=== PATIENT | male | born 1965 | race Caucasian/White ===

== ENCOUNTER 2023-08-15 11:13 | Observation (INO) | payer BC ==
[2023-08-15 11:55] LABS: Absolute Lymphocytes (CBC) 2.6 K/uL (0.7-4.9); Hematocrit 51.3 % (39.6-49.0); Lymphocytes % 26.3 % (15.3-44.8); Platelets 269 thou/uL (152-406)
[2023-08-15 12:00] LABS: Protime INR 1.06
[2023-08-15 12:09] LABS: Albumin 3.9 g/dL (3.4-5.0); Bilirubin Direct 0.4 mg/dL (0-0.2); Bilirubin Indirect, Calculated 1.3 mg/dL (0.2-0.8); Bilirubin Total 1.7 mg/dL (0.2-1.0); Magnesium 2.1 mg/dL (1.6-2.4); Potassium 3.8 mEq/L (3.5-5.1); Protein, Total 7.9 g/dL (6.4-8.2)
--- NOTE | 2023-08-15 12:44 | RAD REPORT ---
EXAM DESCRIPTION: RAD - Chest Single View - 08/15/2023 12:38 pm CLINICAL HISTORY: CHEST PAIN Chest pain. COMPARISON: <Comparisons> FINDINGS: Portable technique limits examination quality. The lungs are grossly clear. The heart is prominent in size. No displaced fractures.Sternotomy wires noted. IMPRESSION: No acute intrathoracic process suspected.
[2023-08-15] MEDS ORDERED: ASPIRIN 81 MG CHEWABLE TABLET ONE (13:14)
--- NOTE | 2023-08-15 14:01 | EDPHYS ---
Physician Documentation [facility] Name: Reji Ramirez Age: 57 yrs Sex: Male : 1965 Arrival Date: 08/15/2023 Time: 11:13 Bed 20 Private MD: ED Physician Brandon Hahn HPI: 08/15 11:49 This 57 yrs old Male presents to ER via Ambulatory with complaints of Chest Pain. ms3 11:49 57-year-old male with past medical history of hypertension, hyperlipidemia, diabetes ms3 presents to the emergency department chest pain that began at 6 AM on waking up. Patient states the pain is resolved at this time. Patient states at 6 AM he rated the pain at 3/10 and describes it as being heavy. Patient denies nausea, vomiting, shortness of breath, sweating. Patient states the pain did not radiate. 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 Historical: - Allergies: 11:24 No Known Allergies; nj1 - PMHx: 11:24 Hypertension; High Cholesterol; Diabetes mellitus; nj1 - PSHx: 11:24 Coronary artery bypass graft; Cholecystectomy; nj1 - Immunization history:: Client reports having NOT received the Covid vaccine. - Social history:: Smoking status: Patient denies any tobacco usage or history of. ROS: 11:49 Constitutional: Negative for fever, and chills. Neck: Negative for injury, pain, and ms3 swelling, Respiratory: Negative for shortness of breath, cough, wheezing, and pleuritic chest pain, Abdomen/GI: Negative for abdominal pain, nausea, vomiting, diarrhea, and constipation, MS/Extremity: Negative for injury and deformity, Skin: Negative for injury, rash, and discoloration, 11:49 Cardiovascular: Positive for chest pain, Exam: 11:49 Constitutional: This is a well developed, well nourished patient who is awake, alert, ms3 and in no acute distress. Neck: Trachea midline, no cervical lymphadenopathy. Supple, full range of motion without nuchal rigidity, or vertebral point tenderness. No Meningismus. Cardiovascular: Regular rate and rhythm with a normal S1 and S2. No gallops, murmurs, or rubs. Normal PMI, no JVD. No pulse deficits. Respiratory: Lungs have equal breath sounds bilaterally, clear to auscultation and percussion. No rales, rhonchi or wheezes noted. No increased work of breathing, no retractions or nasal flaring. Abdomen/GI: Soft, non-tender, with normal bowel sounds. No distension or tympany. No guarding or rebound. No evidence of tenderness throughout. Skin: Warm, dry with normal turgor. Normal color with no rashes, no lesions, and no evidence of cellulitis. MS/ Extremity: Pulses equal, no cyanosis. Neurovascular intact. Full, normal range of motion. 11:55 ECG was reviewed by the Attending Physician. ms3 Vital Signs: 11:15 BP 119 / 81; Pulse 58; Resp 18; Temp 97.7(O); Pulse Ox 100% on R/A; Weight 112.49 kg; nj1 Height 5 ft. 7 in. ; Pain 3/10; 12:34 BP 105 / 63; Pulse 61; Resp 18; Pulse Ox 95% ; mb9 11:15 Body Mass Index 38.84 (112.49 kg, 170.18 cm) nj1 11:15 Pain Scale: Adult nj1 MDM: 11:49 Patient medically screened. ms3 11:49 Differential diagnosis: abnormal EKG, acute myocardial infarction. ms3 12:52 HEART Score: History: Moderately Suspicious (1), ECG: Normal (0), Age: > 45 and < 65 ms3 years (1), Risk Factors: > or = 3 Risk factors for atherosclerotic disease (2), [Hypercholesterolemia] [Hypertension] [DM] Troponin: < or = 1 x Normal Limit (0), Total Score = 4. The patient was given aspirin in the Emergency Department. 12:52 The patient was given aspirin in the Emergency Department. Data reviewed: vital signs, ms3 nurses notes, lab test result(s), EKG, radiologic studies, and as a result, I will admit patient. Consideration of Admission/Observation Patient was admitted/placed on observation. Management of patient was discussed with the following: Hospitalist: Discussed case with Hospitalist team and they accept patient as observation. Discussed necessity of observation with patient and he understands/ agrees with plan.. 14:00 ED course: Discussed necessity of admission with patient. He understands/ agrees with nc3 plan. All questions answered.. 08/15 11:38 Order name: Basic Metabolic Panel; Complete Time: 12:50 mb9 08/15 11:38 Order name: CBC with Diff; Complete Time: 12:50 mb9 08/15 11:38 Order name: D-Dimer; Complete Time: 12:50 mb9 08/15 11:38 Order name: LFT's; Complete Time: 12:50 mb9 08/15 11:38 Order name: Magnesium; Complete Time: 12:50 mb9 08/15 11:38 Order name: NT PRO-BNP; Complete Time: 12:50 mb9 08/15 11:38 Order name: PT-INR; Complete Time: 12:50 mb9 08/15 11:38 Order name: Troponin HS; Complete Time: 12:50 mb9 08/15 17:14 Order name: Glucose, Ancillary Testing; Complete Time: 19:14 EDMS 08/15 11:38 Order name: XRAY Chest (1 view); Complete Time: 12:50 mb9 08/15 11:38 Order name: EKG; Complete Time: 11:39 mb9 08/15 11:38 Order name: Cardiac monitoring; Complete Time: 11:38 mb9 08/15 11:38 Order name: EKG - Nurse/Tech; Complete Time: 11:38 mb9 08/15 11:38 Order name: IV Saline Lock; Complete Time: 11:38 mb9 08/15 11:38 Order name: Labs collected and sent; Complete Time: 11:38 mb9 08/15 11:38 Order name: O2 Per Protocol; Complete Time: 11:38 mb9 08/15 11:38 Order name: O2 Sat Monitoring; Complete Time: 11:38 mb9 EC:55 Rate is 57 beats/min. Rhythm is regular. QRS [place] is Normal. OR interval is normal. ms3 Clinical impression: NSR w/ Non-specific ST/T Changes. Interpreted by me. Reviewed by me. Administered Medications: 13:01 Drug: Aspirin PO Chewable Tablet 324 mg PO once; 81 mg tablets x 4 Route: PO; mb9 19:26 Follow up: Response: No adverse reaction mb9 Disposition Summary: 08/15/23 14:00 Hospitalization Ordered Notes: Hospitalization Status: Observation ms3 Provider: Mc Irwin ms3 Condition: Stable ms3 Problem: new ms3 Symptoms: are unchanged ms3 Bed/Room Type: Standard ms3 Location: Telemetry/MedSurg (observation)(08/15/23 18:20) eb Room Assignment: 401(08/15/23 18:20) eb Diagnosis - Chest pain, unspecified ms3 Forms: - Medication Reconciliation Form ms3 - SBAR form ms3 - Leadership Thank You Letter ms3 Signatures: Dispatcher [employer] EDMT Ami Eddy Marcus, DO DO ms3 [place] García RN RN mb9 Shaneka Velez RN RN nj1 Corrections: (The following items were deleted from the chart) 13:13 12:52 Aspirin PO Chewable Tablet 324 mg PO once; 81 mg tablets x 4 ordered. ms3 ms3 17:55 14:00 Telemetry/MedSurg (observation) ms3 eb 17:55 14:00 ms3 eb 18:20 17:55 [facility] ER HOLD eb eb 18:20 17:55 ERHOLD- eb eb
--- NOTE | 2023-08-15 14:01 | ER ---
Nurse's Notes [facility] Name: Reji Ramirez Age: 57 yrs Sex: Male : 1965 Arrival Date: 08/15/2023 Time: 11:13 Bed 20 Private MD: Diagnosis: Chest pain, unspecified Presentation: 08/15 11:15 Chief complaint: Patient states: Chest pain since waking up this morning, went to [facility] urgent care, sent over for further evaluation and treatment. 11:15 Coronavirus screen: Vaccine status: Patient reports being unvaccinated. Ebola Screen: [facility] Patient denies travel to an Ebola-affected area in the 21 days before illness onset. Initial Sepsis Screen: Does the patient meet any 2 criteria? No. Patient's initial sepsis screen is negative. Does the patient have a suspected source of infection? No. Patient's initial sepsis screen is negative. Risk Assessment: Do you want to hurt yourself or someone else? Patient reports no desire to harm self or others. Onset of symptoms was August 15, 2023 at 06:00. 11:15 Method Of Arrival: Ambulatory [facility] 11:15 Acuity: NITIN 2 [facility] Historical: - Allergies: 11:24 No Known Allergies; [facility] - PMHx: 11:24 Hypertension; High Cholesterol; Diabetes mellitus; [facility] - PSHx: 11:24 Coronary artery bypass graft; Cholecystectomy; [facility] - Immunization history:: Client reports having NOT received the Covid vaccine. - Social history:: Smoking status: Patient denies any tobacco usage or history of. Screenin:44 [facility] ED Fall Risk Assessment (Adult) History of falling in the last 3 months, mb9 including since admission No falls in past 3 months (0 pts) Confusion or Disorientation No (0 pts) Intoxicated or Sedated No (0 pts) Impaired Gait No (0 pts) Mobility Assist Device Used No (0 pt) Altered Elimination No (0 pt) Score/Fall Risk Level 0 - 2 = Low Risk Oriented to surroundings, Maintained a safe environment, Educated pt \T\ family on fall prevention, incl call for assistance when getting out of bed. Abuse screen: Denies threats or abuse. Nutritional screening: No deficits noted. Tuberculosis screening: No symptoms or risk factors identified. Assessment: 11:38 General: Appears in no apparent distress. Behavior is calm, cooperative. Pain: mb9 Complains of pain in chest Pain does not radiate. Pain currently is 0 out of 10 on a pain scale. Quality of pain is described as pressure, Pain began suddenly, Is intermittent. Neuro: Campos Agitation-Sedation Scale (RASS): 0 - Alert and Calm Level of Consciousness is awake, alert, obeys commands, Oriented to person, place, time, situation, Appropriate for age. Cardiovascular: Reports chest pain, Heart tones S1 S2 present Patient's skin is warm and dry. Respiratory: Airway is patent Respiratory effort is even, unlabored, Respiratory pattern is regular, symmetrical, Breath sounds are clear bilaterally. Denies shortness of breath. GI: Abdomen is round non-distended, Bowel sounds present X 4 quads. Abd is soft and non tender X 4 quads. Patient currently denies nausea, vomiting. : No signs and/or symptoms were reported regarding the genitourinary system. EENT: No signs and/or symptoms were reported regarding the EENT system. Derm: Skin is pink, warm \T\ dry. Musculoskeletal: Range of motion: intact in all extremities. 12:34 Reassessment: No changes from previously documented assessment. Patient and/or family mb9 updated on plan of care and expected duration. Pain level reassessed. Patient is alert, oriented x 3, equal unlabored respirations, skin warm/dry/pink. 15:58 Reassessment: See [facility] for further charting. mb9 Vital Signs: 11:15 BP 119 / 81; Pulse 58; Resp 18; Temp 97.7(O); Pulse Ox 100% on R/A; Weight 112.49 kg; nj1 Height 5 ft. 7 in. ; Pain 3/10; 12:34 BP 105 / 63; Pulse 61; Resp 18; Pulse Ox 95% ; mb9 11:15 Body Mass Index 38.84 (112.49 kg, 170.18 cm) nj1 11:15 Pain Scale: Adult nj1 ED Course: 11:15 Patient arrived in ED. im 11:20 EKG done, by ED staff, reviewed by Brandon Hahn DO. nj1 11:21 Brandon Hahn DO is Attending Physician. ms3 11:24 Triage completed. nj1 11:25 Arm band placed on right wrist. nj1 11:28 Breneman, Yudelka, RN is Primary Nurse. mb9 11:38 Inserted saline lock: 20 gauge in right antecubital area, using aseptic technique. mb9 Blood collected. 11:44 Placed in gown. Bed in low position. Call light in reach. Side rails up X 1. Client mb9 placed on continuous cardiac and pulse oximetry monitoring. NIBP monitoring applied. 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 11:44 No provider procedures requiring assistance completed. Patient maintains SpO2 mb9 saturation greater than 95% on room air. 12:40 XRAY Chest (1 view) In Process Unspecified. EDMS 14:00 Mc Irwin MD is Hospitalizing Provider. ms3 Administered Medications: 13:01 Drug: Aspirin PO Chewable Tablet 324 mg PO once; 81 mg tablets x 4 Route: PO; mb9 19:26 Follow up: Response: No adverse reaction mb9 Medication: 11:45 VIS not applicable for this client. mb9 Outcome: 14:00 Decision to Hospitalize by Provider. ms3 19:37 Patient left the ED. mb9 Signatures: Dispatcher [employer] EDMT Brandon Hahn DO DO ms3 [place] García, RN RN mb9 Shaneka Velez RN RN nj1 Maggi Gonzalez im
--- NOTE | 2023-08-15 14:16 | P.HP ---
Certification for Inpatient Patient admitted to: Observation With expected LOS: <2 Midnights Patient will require the following post-hospital care: None Practitioner: I am a practitioner with admitting privileges, knowledge of patient current condition, hospital course, and medical plan of care. Services: Services provided to patient in accordance with Admission requirements found in Title 42 Section 412.3 of the Code of Federal Regulations Patient History Date of Service: 08/15/23 Reason for admission: Chest pain History of Present Illness: 57-year-old male with history of CAD with previous CABG 2014, chronic systolic ingestive heart failure, [id number]-vkksledec diabetes, hypertension and hyperlipidemia presents to the emergency department chief complaint of chest pain. Reports the pain began this morning while lying in bed described as pressure-like nonradiating rated 3 out of 10 in intensity with no other associated symptoms. He has had intermittent episodes of pain without the day lasting about 35 minutes at a time with no obvious provoking events. He does report the last 2 days doing a lot of work with a chainsaw, his pain is n onreproducible and currently mild in nature. 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 Has not had a heart catheterization since 2014 when he had his bypass. Of note patient does take both metoprolol tartrate and metoprolol succinate, he has both bottles with him and I reviewed his prescription from the pharmacy to confirm. ED provider wishes to admit under observation for ACS rule out. Allergies No Known Allergies Allergy (Verified 09/15/16 13:12) Home Medications: Aspirin 81 mg PO DAILY 06/11/15 Atorvastatin Calcium [Lipitor] 80 mg PO DAILY 09/01/16 Furosemide 40 mg PO BID 09/01/16 Metoprolol Succinate [Toprol Xl*] 25 mg PO DAILY 09/01/16 Metoprolol Tartrate [Lopressor*] 25 mg PO DAILYPRN PRN 09/01/16 PARoxetine HCL [Paxil*] 10 mg PO DAILY 09/01/16 Sacubitril/Valsartan [Entresto 49 mg-51 mg Tablet] 1 tab PO BID 09/01/16 - Past Medical/Surgical History Diabetic: No -: LIPIDS -: HTN -: OR -: CHF-systolic -: CAD-CABG -: CABG -: LEFT VENTRICLE ANURSYMC RESECTION -: holly -: esophgeal repair Psychosocial/ Personal History: Lives at home alone currently - Family History Mother -: Heart disease, Diabetes Notes: HAD MINOR OR, Father -: Heart disease, Diabetes, Stroke Notes: OR - Social History Smoking Status: Never smoker Alcohol use: No CD- Drugs: No Caffeine use: Yes Place of Residence: Home Review of Systems 10-point ROS is otherwise unremarkable Cardiovascular: Chest Pain Physical Examination - Physical Exam General: Alert, In no apparent distress, Oriented x3 HEENT: Atraumatic, PERRLA Neck: Supple, 2+ carotid pulse no bruit, No LAD Respiratory: Clear to auscultation bilaterally, Normal air movement Cardiovascular: Regular rate/rhythm, Normal S1 S2 Gastrointestinal: Normal bowel sounds, No tenderness Musculoskeletal: No tenderness Integumentary: No rashes Neurological: Normal speech, Normal strength at 5/5 x4 extr, Normal tone - Studies Laboratory Data (last 24 hrs) 08/15/23 08/15/23 08/15/23 11:40 11:40 11:40 WBC 9.80 Hgb 18.0 H Hct 51.3 H Plt Count 269 PT 11.6 INR 1.06 Sodium 134 L Potassium 3.8 BUN 17 Creatinine 0.96 Glucose 152 H Magnesium 2.1 Total Bilirubin 1.7 H AST 16 ALT 36 Alkaline Phosphatase 94 Assessment and Plan - Plan Assessment: Chest pain rule out ACShistory of CAD with previous CABG 2014 Chronic systolic congestive heart failure Diabetes mellitus type [id number] Hypertension Hyperlipidemia Plan: Chest pain rule out ACShistory of CAD with previous CABG 2014 Monitor on telemetry, trend troponins Stress test reportedly 4 months ago normal per patient Has not had heart cath since CABG in 2014 Cardiology consult, continue aspirin, statin, beta-ang Chronic systolic congestive heart failure Who medications including Entresto continued Diabetes mellitus type [id number] Mild sliding scale insulin, continue home medications Hypertension Hyperlipidemia Atorvastatin and metoprolol continue Patient does take metoprolol tartrate and metoprolol succinate at home DVT PPX: Lovenox Code status: Full Discharge Plan: Home Plan to discharge in: 24 Hours - Advance Directives Does patient have a Living Will: No Does patient have a Durable POA for Healthcare: No - Code Status/Comfort Care Code Status Assessed: Yes (Full code) Critical Care: No Time Spent Managing Pts Care (In Minutes): 55
[2023-08-15] MEDS ORDERED: ONDANSETRON 4 MG/2 ML VIAL IV PRN (15:22)
[2023-08-15 15:39] VITALS: BMI 38.5
[2023-08-15] MEDS ORDERED: METOPROLOL TAR 25 MG TAB PO PRN (15:50)
[2023-08-15] MEDS: INSULIN REGULAR (HUMAN) 100 UNIT/ML SQ SCH ×2 (16:30→21:43)
[2023-08-15] MEDS: FUROSEMIDE 40 MG TABLET PO SCH (17:00)
[2023-08-15] MEDS ORDERED: METOPROLOL TAR 25 MG TAB PO SCH (18:00)
[2023-08-15 19:57] VITALS: O2SAT 95
[2023-08-15] MEDS ORDERED: SACUBITRIL/VALSARTAN 49/51 MG TAB PO SCH (21:00)
[2023-08-15] MEDS ORDERED: METOPROLOL XL 25 MG TAB PO SCH (21:00)
[2023-08-15] MEDS ORDERED: ATORVASTATIN 80 MG TAB PO SCH (21:00)
[2023-08-15] MEDS ORDERED: PARoxetine HCL 10 MG TAB PO SCH (21:00)
[2023-08-16 06:31] LABS: Absolute Lymphocytes (CBC) 2.8 K/uL (0.7-4.9); Hematocrit 45.7 % (39.6-49.0); Lymphocytes % 34.7 % (15.3-44.8); MPV 7.8 fL (7.6-11.3); Platelets 236 thou/uL (152-406); RBC Red Blood Cell Count 4.81 M/uL (4.33-5.43)
[2023-08-16 07:03] LABS: Albumin 3.1 g/dL (3.4-5.0); Potassium 3.2 mEq/L (3.5-5.1); Protein, Total 6.3 g/dL (6.4-8.2); Troponin High Sensitivity 9.2 pg/mL (<58.9)
[2023-08-16] MEDS: INSULIN REGULAR (HUMAN) 100 UNIT/ML SQ SCH (07:30)
[2023-08-16] MEDS: FUROSEMIDE 40 MG TABLET PO SCH (07:42)
[2023-08-16] MEDS ORDERED: POTASSIUM 25 MEQ EFFERV TAB PO ONE (08:00)
[2023-08-16 08:38] VITALS: BP 98/57; TEMP 98
[2023-08-16] MEDS ORDERED: ENOXAPARIN 40 MG/0.4 ML SQ SCH (09:00)
[2023-08-16] MEDS ORDERED: EPLERENONE 25 MG PO SCH (09:00)
[2023-08-16] MEDS ORDERED: ATORVASTATIN 80 MG TAB PO SCH (09:00)
[2023-08-16] MEDS ORDERED: HOME MED 1 EA UNK (Aspirin [Aspirin] 81 MG Tab.Chew) PO SCH (09:00)
[2023-08-16] MEDS ORDERED: FUROSEMIDE 40 MG TABLET PO SCH (09:00)
[2023-08-16] MEDS ORDERED: Dapagliflozin Propanediol [Farxiga] 10 MG Tablet PO SCH (09:00)
[2023-08-16] MEDS ORDERED: METOPROLOL XL 50 MG TAB PO SCH (09:00)
[2023-08-16] MEDS ORDERED: METFORMIN HCL 500 MG TAB PO SCH (09:00)
[2023-08-16] MEDS ORDERED: ASPIRIN EC 81 MG TAB PO SCH (09:00)
[2023-08-16] MEDS ORDERED: PAROXETINE 25 MG PO SCH (09:00)
--- NOTE | 2023-08-16 10:06 | P.DS ---
Admission Date: 08/15/23 Discharge Date: 08/16/23 Disposition: ROUTINE DISCHARGE Discharge Condition: GOOD Reason for Admission: Chest pain Consultations: Cardiology-Dr. Ortiz Brief History of Present Illness: 57-year-old male with history of CAD with previous CABG 2014, chronic systolic ingestive heart failure, tyx-rxjefli-uflcjqblf diabetes, hypertension and hyperlipidemia presents to the emergency department chief complaint of chest pain. Reports the pain began this morning while lying in bed described as pressure-like nonradiating rated 3 out of 10 in intensity with no other associated symptoms. He has had intermittent episodes of pain without the day lasting about 35 minutes at a time with no obvious provoking events. He does report the last 2 days doing a lot of work with a chainsaw, his pain is nonreproducible and currently mild in nature. 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 Has not had a heart catheterization since 2014 when he had his bypass. Of note patient does take both metoprolol tartrate and metoprolol succinate, he has both bottles with him and I reviewed his prescription from the pharmacy to confirm. ED provider wishes to admit under observation for ACS rule out. Hospital Course: Assessment: Chest pain rule out ACShistory of CAD with previous CABG 2014 Chronic systolic congestive heart failure Diabetes mellitus type [id number] Hypertension Hyperlipidemia Patient was admitted under observation for chest pain/ACS rule out. He was monitored on telemetry and troponins were trended. No significant arrhythmia was noted on telemetry and troponins remain negative during hospitalization. Patient was evaluated cardiology recommends outpatient stress test for further evaluation. Patient stable for discharge at this time. Please continue your home medications as prescribed Follow-up with your primary care doctor in 1 to 2 weeks as well as cardiologyDr. Ortiz within 1 week.-Call Dr. Ortiz's office for appointment. Vital Signs/Physical Exam: Temp Pulse Resp BP Pulse Ox 98.0 F 59 16 98/57 L 97 08/16/23 08:00 08/16/23 08:00 08/16/23 08:00 08/16/23 08:00 08/16/23 08:00 General: Alert, In no apparent distress, Oriented x3 HEENT: Atraumatic, PERRLA, EOMI Neck: Supple, JVD not distended Respiratory: Clear to auscultation bilaterally, Normal air movement Cardiovascular: Regular rate/rhythm, Normal S1 S2 Gastrointestinal: Normal bowel sounds Musculoskeletal: No tenderness Integumentary: No rashes Neurological: Normal speech, Normal tone, Normal affect Laboratory Data at Discharge: WBC 8.00 thou/uL (4.3-10.9) 08/16/23 06:00 Hgb 15.6 g/dL (13.6-17.9) D 08/16/23 06:00 Hct 45.7 % (39.6-49.0) 08/16/23 06:00 Plt Count 236 thou/uL (152-406) 08/16/23 06:00 PT 11.6 SECONDS (9.5-12.5) 08/15/23 11:40 INR 1.06 08/15/23 11:40 Sodium 139 mEq/L (136-145) D 08/16/23 06:00 Potassium 3.2 mEq/L (3.5-5.1) L D 08/16/23 06:00 BUN 15 mg/dL (7-18) 08/16/23 06:00 Creatinine 0.74 mg/dL (0.70-1.30) 08/16/23 06:00 Glucose 148 mg/dL (74-106) H 08/16/23 06:00 Magnesium 2.1 mg/dL (1.6-2.4) 08/15/23 11:40 Total Bilirubin 1.0 mg/dL (0.2-1.0) 08/16/23 06:00 AST 11 U/L (15-37) L 08/16/23 06:00 ALT 27 U/L (16-61) 08/16/23 06:00 Alkaline Phosphatase 76 U/L (45-117) 08/16/23 06:00 Triglycerides 108 mg/dL (<150) 08/16/23 06:00 Cholesterol 96 mg/dL (<200) 08/16/23 06:00 HDL Cholesterol 33 mg/dL (40-60) L 08/16/23 06:00 Cholesterol/HDL Ratio 2.91 08/16/23 06:00 Home Medications: Aspirin 81 mg PO DAILY 06/11/15 Atorvastatin Calcium [Lipitor] 80 mg PO DAILY 09/01/16 Furosemide 40 mg PO BID 09/01/16 Metoprolol Succinate [Toprol Xl*] 25 mg PO DAILY 09/01/16 Metoprolol Tartrate [Lopressor*] 25 mg PO DAILYPRN PRN 09/01/16 PARoxetine HCL [Paxil*] 25 mg PO DAILY 09/01/16 Dapagliflozin Propanediol [Farxiga] 10 mg PO DAILY 08/15/23 Eplerenone 25 mg PO DAILY 08/15/23 Metformin HCl 500 mg PO DAILY 08/15/23 Sacubitril/Valsartan [Entresto 49 mg-51 mg Tablet] 49 - 51 mg PO BID 08/15/23 Physician Discharge Instructions: Patient was admitted under observation for chest pain/ACS rule out. He was monitored on telemetry and troponins were trended. No significant arrhythmia was noted on telemetry and troponins remain negative during hospitalization. Patient was evaluated cardiology recommends outpatient stress test for further evaluation. Patient stable for discharge at this time. Please continue your home medications as prescribed Follow-up with your primary care doctor in 1 to 2 weeks as well as cardiologyDr. Ortiz within 1 week.-[address] Dr[address] Ortiz's office for appointment. Diet: AHA Activity: Ad ramya Followup: Ayleen Cruz MD [Primary Care Provider] - 1-2 Weeks (Call for appointment.) Antwon Ortiz MD [ACTIVE - CAN ADMIT] - 1 Week (call for appointment.) Time spent managing pt's care (in minutes): 25
--- NOTE | 2023-08-16 11:08 | P.CNS ---
Date of Consult: 08/15/23 Reason for Consult: Chest pain Requesting Physician: Mc Irwin Chief Complaint: Chest pain History of Present Illness: Mr. Ramirez is a 57yo patient with CAD history and NIDDM who presented to the ED for substernal mild intermittent chest pain of 3/10. As he has a significant cardiac history and DM he went to an Urgent care for evaluation. They sent him to the ED. Troponin, EKG, Chest x-ray negative. Allergies No Known Allergies Allergy (Verified 09/15/16 13:12) Home medications list reviewed: Yes Home Medications: Aspirin 81 mg PO DAILY 06/11/15 Atorvastatin Calcium [Lipitor] 80 mg PO DAILY 09/01/16 Furosemide 40 mg PO BID 09/01/16 Metoprolol Succinate [Toprol Xl*] 25 mg PO DAILY 09/01/16 Metoprolol Tartrate [Lopressor*] 25 mg PO DAILYPRN PRN 09/01/16 PARoxetine HCL [Paxil*] 25 mg PO DAILY 09/01/16 Dapagliflozin Propanediol [Farxiga] 10 mg PO DAILY 08/15/23 Eplerenone 25 mg PO DAILY 08/15/23 Metformin HCl 500 mg PO DAILY 08/15/23 Sacubitril/Valsartan [Entresto 49 mg-51 mg Tablet] 49 - 51 mg PO BID 08/15/23 - Past Medical/Surgical History Diabetic: No -: LIPIDS -: HTN -: [place] -: CHF-systolic -: CAD-CABG -: CABG -: LEFT VENTRICLE AN[facility] RESECTION -: holly -: esophgeal repair Psychosocial/ Personal History: Lives at home alone currently - Family History Mother Medical History: Heart disease, Diabetes Notes: HAD MINOR [place], Father Medical History: Heart disease, Diabetes, Stroke Notes: [place] - Social History Smoking Status: Unknown if ever smoked Alcohol use: No CD- Drugs: No Caffeine use: Yes Place of Residence: Home Review of Systems 10-point ROS is otherwise unremarkable Cardiovascular: As per HPI Physical Examination Temp Pulse Resp BP Pulse Ox 98.0 F 59 16 98/57 L 97 08/16/23 08:00 08/16/23 08:00 08/16/23 08:00 08/16/23 08:00 08/16/23 08:00 General: Alert, In no apparent distress, Oriented x3 HEENT: Atraumatic, Normocephalic, PERRLA Neck: Supple, 2+ carotid pulse no bruit Respiratory: Clear to auscultation bilaterally, Normal air movement Cardiovascular: No edema, Normal pulses Capillary refill: <2 Seconds Gastrointestinal: Normal bowel sounds Musculoskeletal: No clubbing Integumentary: No rashes, No breakdown Neurological: Normal speech, Normal tone Lymphatics: No axilla or inguinal lymphadenopathy External genitalia: Deferred Rectal: Deferred Laboratory Data (last 24 hrs) 08/15/23 08/15/23 08/15/23 11:40 11:40 11:40 WBC 9.80 Hgb 18.0 H Hct 51.3 H Plt Count 269 PT 11.6 INR 1.06 Sodium 134 L Potassium 3.8 BUN 17 Creatinine 0.96 Glucose 152 H Magnesium 2.1 Total Bilirubin 1.7 H AST 16 ALT 36 Alkaline Phosphatase 94 - Problems (1) Chest pain Onset Date: 09/16/16 Current Visit: No Status: Acute Plan: Trend troponins, telemetry, continue current medications 08/16/23 Troponin trend negative, negative for chest pain today, follow up with office for outpatient f/u and NM stress test. (2) Essential hypertension Current Visit: Yes Status: Acute Plan: Pt states his pressure is well controlled and tends to stay low without any untoward effects. 94/59 overnight, he states this is normal for him, continue current therapy (3) DM type 2 with diabetic mixed hyperlipidemia Current Visit: Yes Status: Acute Plan: Monitor electrolytes
--- NOTE | 2023-08-17 13:50 | EKG ---
Test Date: 2023-08-15 Test Time: 11:19:02 Pack Mule Worker: ANGELINE MEASUREMENT RESULTS: Intervals: Rate: 57 NH: 134 QRSD: 108 QT: 446 QTc: 434 [place]: P: 6 NH: 134 QRS: 22 T: 167 INTERPRETIVE STATEMENTS: Sinus bradycardia Inferior infarct, age undetermined Anterolateral infarct, age undetermined Abnormal ECG Compared to ECG 09/01/2016 10:40:57 Sinus rhythm no longer present Myocardial infarct finding still present Electronically Signed On 08-17-23 13:41:43 EMPLOYMENT ATTORNEY by Antwon Ortiz
== END 2023-08-16 10:57 | disposition home or self-care (01) ==
LOC: ER 11:13 → ERHOLD 14:17 → 4TH 19:29
PROVIDERS: ADMIT Hospitalist; ATTEND Hospitalist
DX: R07.9 Chest pain, unspecified (principal); I25.10 Atherosclerotic heart disease of native coronary artery without angina pectoris; I50.22 Chronic systolic (congestive) heart failure; E11.9 Type 2 diabetes mellitus without complications; I10 Essential (primary) hypertension; Z95.1 Presence of aortocoronary bypass graft; Z82.49 Family history of ischemic heart disease and other diseases of the circulatory system; E78.2 Mixed hyperlipidemia
CPT/HCPCS: 93005; 85025 ×2; 80048; 36415; 83735; 85610; 80061; 82947 ×3; 85379; 80076; 84484 ×2; 80053; 83880; 71045; 99285; J1815; J1650; G0378 ×4

== ENCOUNTER 2023-09-24 10:40 | Day surgery (SDC) | payer BC ==
[2023-09-22 13:14] LABS: Absolute Lymphocytes (CBC) 2.9 K/uL (0.7-4.9); Hematocrit 51.2 % (39.6-49.0); Lymphocytes % 34.8 % (15.3-44.8); MCV 95.1 fL (80-100); MPV 7.9 fL (7.6-11.3); Platelets 271 thou/uL (152-406); RBC Red Blood Cell Count 5.39 M/uL (4.33-5.43)
[2023-09-22 13:21] LABS: Protime INR 1.07
[2023-09-22 13:29] LABS: Potassium 4.4 mEq/L (3.5-5.1)
[2023-09-24] MEDS ORDERED: HEPA 1000U/500MLS 2,000 UNIT/1,000 ML BAG IV ONE (10:47)
[2023-09-24] MEDS ORDERED: LIDOCAINE 1% 20 ML MDV ONE (10:47)
[2023-09-24] MEDS ORDERED: FENTANYL CITR 100 MCG/2 ML ONE (10:47)
[2023-09-24] MEDS ORDERED: HEPARIN 10,000 UNIT/10 ML VIAL IV ONE (10:48)
[2023-09-24] MEDS ORDERED: TICAGRELOR 90 MG TABLET PO ONE (10:48)
[2023-09-24] MEDS ORDERED: ATROPINE SULF 1 MG/10 ML SYR IV ONE (10:48)
[2023-09-24] MEDS ORDERED: MIDAZOLAM HCL 2 MG/2 ML INJ ONE (10:48)
[2023-09-24] MEDS ORDERED: ASPIRIN 325 MG TAB ONE (10:49)
[2023-09-24] MEDS ORDERED: CLOPIDOGREL 75 MG TABLET ONE (10:49)
[2023-09-24] MEDS ORDERED: NA CHLORIDE 0.9% 500 ML ONE (10:56)
[2023-09-24 15:52] VITALS: O2SAT 93
[2023-09-24 16:25] VITALS: BP 118/66
--- NOTE | 2023-09-27 17:12 | EKG ---
Test Date: 2023-09-22 Test Time: 13:59:53 Pack Master: CHASITY MEASUREMENT RESULTS: Intervals: Rate: 66 NM: 156 QRSD: 102 QT: 408 QTc: 427 [place]: P: 40 NM: 156 QRS: 23 T: 160 INTERPRETIVE STATEMENTS: Normal sinus rhythm Inferior infarct, age undetermined Anterior infarct, age undetermined ST & T wave abnormality, consider lateral ischemia Abnormal ECG Compared to ECG 08/15/2023 11:19:02 ST (T wave) deviation now present Possible ischemia now present Sinus bradycardia no longer present Myocardial infarct finding still present Electronically Signed On 09-27-23 16:57:48 LAWNMOWER REPAIR MECHANIC by Antwon Ortiz
== END 2023-09-24 16:15 | disposition home or self-care (01) ==
LOC: CCL 10:40
PROVIDERS: ATTEND Internal Medicine
DX: I25.110 Atherosclerotic heart disease of native coronary artery with unstable angina pectoris (principal); I25.700 Atherosclerosis of coronary artery bypass graft(s), unspecified, with unstable angina pectoris; I25.82 Chronic total occlusion of coronary artery; I65.23 Occlusion and stenosis of bilateral carotid arteries; I11.0 Hypertensive heart disease with heart failure; I50.32 Chronic diastolic (congestive) heart failure; E11.9 Type 2 diabetes mellitus without complications; R00.2 Palpitations; E78.5 Hyperlipidemia, unspecified; Z95.1 Presence of aortocoronary bypass graft; Z87.891 Personal history of nicotine dependence; Z79.82 Long term (current) use of aspirin; Z79.84 Long term (current) use of oral hypoglycemic drugs; Z79.899 Other long term (current) drug therapy; Z88.8 Allergy status to other drugs, medicaments and biological substances; Z82.49 Family history of ischemic heart disease and other diseases of the circulatory system
CPT/HCPCS: 93005; 85025; 80048; 36415; 83721; 85610; 85730; 93459; 76937; C1893; Q9967; J2001; J3010; J7040; 99152; 99153; J0461; J2250

== ENCOUNTER 2023-12-09 13:18 | Observation (INO) | payer BC ==
[2023-12-09] MEDS ORDERED: ASPIRIN 81 MG CHEWABLE TABLET ONE (13:39)
[2023-12-09 13:58] LABS: Absolute Eosinophils 0.1 K/uL (0-0.5); Absolute Lymphocytes (CBC) 1.8 K/uL (0.7-4.9); Absolute Monocytes 0.5 K/uL (0.1-1.3); Basophils % 0.2 % (0-1.3); Eosinophils % 1.6 % (0-4.4); Hematocrit 45.9 % (39.6-49.0); Hemoglobin 15.7 g/dL (13.6-17.9); Lymphocytes % 21.2 % (15.3-44.8); MCH 32.3 pg (27.0-35.0); MCHC 34.1 g/dL (32.0-36.0); MCV 94.7 fL (80-100); MPV 7.5 fL (7.6-11.3); Monocytes % 6.4 % (3.3-12.3); Neutrophils % 70.6 % (41.7-73.7); Nucleated Red Blood Cells % 0.1 % (0-0); Platelets 339 thou/uL (152-406); RBC Red Blood Cell Count 4.85 M/uL (4.33-5.43); Red Cell Distribution Width 14.2 % (12.1-15.2)
[2023-12-09 14:02] LABS: PT Prothrombin Time 12.2 SECONDS (9.5-12.5); Protime INR 1.11
--- NOTE | 2023-12-09 14:07 | RAD REPORT ---
EXAM DESCRIPTION: RAD - Chest Single View - 12/09/2023 1:53 pm CLINICAL HISTORY: CHEST PAIN Chest pain. COMPARISON: Chest Single View dated 08/15/2023; Chest Single View dated 09/01/2016 FINDINGS: Portable technique limits examination quality. The lungs are grossly clear. The heart is mildly enlarged in size with changes of a prior CABG. No di splaced fractures. IMPRESSION: No acute intrathoracic process suspected.
[2023-12-09 14:17] LABS: Anion Gap 9.8 mEq/L (5.0-15.0); Potassium 3.8 mEq/L (3.5-5.1); Troponin High Sensitivity 13.3 pg/mL (<58.9)
--- NOTE | 2023-12-09 14:26 | EDPHYS ---
Physician Documentation [facility] Name: Reji Ramirez Age: 58 yrs Sex: Male : 1965 Arrival Date: 12/09/2023 Time: 13:18 Bed 14 Private MD: ED Physician Vick Rust HPI: 12/08 13:35 This 58 yrs old Male presents to ER via Wheelchair with complaints of Low ec2 pulse, Dr. Angel gray 12 lead on him. 13:35 Patient arrives today for evaluation of bradycardia. Patient was in cardiac rehab and ec2 was sent over to the emergency department for further evaluation because he was noted to have heart rates in the 40s. Patient reports some occasional shortness of breath, denies any active chest pain. Patient reports history of previous CAD, CABG x 2. Patient is on amiodarone, metoprolol, Plavix.. Historical: - Allergies: 13:35 Spironolactone; hb - Home Meds: 13:48 amiodarone 200 mg Oral tablet 1 tab 3 times per day [Active]; aspirin 81 mg oral bp capsule 1 cap daily [Active]; atorvastatin 80 mg oral tablet 1 tab daily [Active]; buspirone 5 mg Oral tablet 1 tab 2 times per day [Active]; clopidogrel 75 mg oral tablet 1 tab daily [Active]; cyanocobalamin (vitamin B-12) 500 mcg oral tablet daily [Active]; Farxiga 10 mg oral tablet 1 tab daily [Active]; Colace 100 mg oral capsule 1 cap 2 times per day [Active]; Inspra 25 mg oral tablet 1 tab daily [Active]; Feosol 325 mg (65 mg iron) Oral tablet 1 tab daily [Active]; Lasix 40 mg Oral tablet 1 tabs 2 times per day [Active]; lisinopril 2.5 mg Oral tablet 1 tab daily [Active]; metformin 500 mg Oral tablet 1 tab 2 times per day [Active]; metoprolol tartrate 25 mg oral tablet 1 tab 2 times per day [Active]; Protonix 40 mg oral granules delayed release for susp packet 1 cap daily [Active]; Paxil 20 mg Oral tablet 1 tab daily [Active]; Flomax 0.4 mg Oral capsule 1 cap daily [Active]; trazodone 50 mg Oral tablet 1 tab daily [Active]; - PMHx: 13:35 High Cholesterol; diabetes mellitus; Hypertension; hb - PSHx: 13:35 Cholecystectomy; Coronary artery bypass graft; hb - Immunization history:: Adult Immunizations up to date. - Infectious Disease History:: Denies. - Social history:: Smoking status: Patient denies any tobacco usage or history of. ROS: 13:35 Constitutional: as per hpi ec2 Exam: 13:35 Constitutional: GEN: NAD Head: atraumatic Eyes: EOMI Ears: External ears are ec2 normal. CV: regular rate LUNGS: no respiratory distress ABD: non-distended SKIN: no evidence of rashes MSK: no evidence of trauma NEURO: moves all extremities equally Vital Signs: 13:33 BP 100 / 66; Pulse 44; Resp 16; Temp 97.4(TE); Pulse Ox 100% on R/A; Weight 102.51 kg; hb Height 5 ft. 7 in. ; Pain 0/10; 18:15 BP 108 / 72; Pulse 66; Resp 16; Temp 97.5; Pulse Ox 96% ; bp 13:33 Body Mass Index 35.40 (102.51 kg, 170.18 cm) hb 13:33 Pain Scale: Adult hb MDM: 13:33 Patient medically screened. ec2 13:35 Data reviewed: vital signs. ED course: Patient arrives today for bradycardia ec2 evaluation. Examination markable well-appearing nontoxic dividual is otherwise in no acute distress with a reassuring examination. Patient with a pulse rate of 44, patient blood pressure is reassuring. EKG obtained, independently reviewed and interpreted by me, shows junctional rhythm with a rate of 44, no acute ST segment elevations, intervals otherwise nonconcerning. Evaluating for electrolyte disturbances, ACS, doubt PE. 14:22 ED course: Metabolic profile reassuring. BNP minimally elevated at 880. Troponin within ec2 normal ranges. Chest x-ray shows no acute intrathoracic process. . 14:25 ED course: I discussed case with Dr. Ortiz, recommends admission for further ec2 management of the patient's bradycardia. Patient otherwise asymptomatic at this time.. 12/08 13:34 Order name: Basic Metabolic Panel; Complete Time: 14:21 ec2 12/08 13:34 Order name: CBC with Diff; Complete Time: 14:35 ec2 12/08 13:34 Order name: Magnesium; Complete Time: 14:21 ec2 12/08 13:34 Order name: NT PRO-BNP; Complete Time: 14:21 ec2 12/08 13:34 Order name: PT-INR; Complete Time: 14:21 ec2 12/08 13:34 Order name: Troponin HS; Complete Time: 14:21 ec2 12/08 17:27 Order name: CBC with Automated Diff EDMS 12/08 17:27 Order name: CBC with Automated Diff EDMS 12/08 17:27 Order name: Comprehensive Metabolic Panel EDMS 12/08 17:27 Order name: Comprehensive Metabolic Panel EDMS 12/08 17:27 Order name: Lipid Profile EDMS 12/08 17:27 Order name: Lipid Profile EDMS 12/08 17:27 Order name: T4 Free EDMS 12/08 17:27 Order name: T4 Free EDMS 12/08 17:27 Order name: Thyroid Stimulating Hormone EDMS 12/08 17:27 Order name: Thyroid Stimulating Hormone EDMS 12/08 17:27 Order name: Troponin High Sensitivity EDMS 12/08 17:27 Order name: Troponin High Sensitivity EDMS 12/08 17:27 Order name: Troponin High Sensitivity EDMS 12/08 13:34 Order name: XRAY Chest (1 view); Complete Time: 14:21 ec2 12/08 17:27 Order name: Echo with Doppler EDMS 12/08 17:27 Order name: Echo with Doppler EDMS 12/08 17:27 Order name: CONS Physician Consult EDMS 12/08 13:34 Order name: Cardiac monitoring; Complete Time: 13:46 ec2 12/08 13:34 Order name: EKG - Nurse/Tech; Complete Time: 13:38 ec2 12/08 13:34 Order name: IV Saline Lock; Complete Time: 13:46 ec2 12/08 13:34 Order name: Labs collected and sent; Complete Time: 13:45 ec2 12/08 13:34 Order name: O2 Per Protocol; Complete Time: 13:45 ec2 12/08 13:34 Order name: O2 Sat Monitoring; Complete Time: 13:45 ec2 Administered Medications: 13:45 Drug: Aspirin PO Chewable Tablet 324 mg PO once; 81 mg tablets x 4 Route: PO; bp Disposition Summary: 12/09/23 14:26 Hospitalization Ordered Notes: Hospitalization Status: Inpatient Admission ec2 Provider: Raghavendra Meeks ec2 Location: Telemetry/MedSurg (Inpatient) ec2 Condition: Stable ec2 Problem: new ec2 Symptoms: are unchanged ec2 Bed/Room Type: Standard ec2 Room Assignment: 206(12/09/23 17:46) eb Diagnosis - Bradycardia, unspecified ec2 Forms: - Medication Reconciliation Form ec2 - SBAR form ec2 - Leadership Thank You Letter ec2 Signatures: Dispatcher [employer] EDMS Kati Cheema, JOSE RN Nicolás Alvarenga RN RN Ami Hubbard Vick Rust MD MD ec2 Corrections: (The following items were deleted from the chart) 13:34 13:34 BASIC METABOLIC PANEL+C.LAB.BRZ ordered. EDMS EDMS 13:34 13:34 CBC+H.LAB.BRZ ordered. EDMS EDMS 13:34 13:34 MAGNESIUM+C.LAB.BRZ ordered. EDMS EDMS 13:34 13:34 PROBNP+C.LAB.BRZ ordered. EDMS EDMS 13:34 13:34 PROTIME (+INR)+COAG.LAB.BRZ ordered. EDMS EDMS 13:34 13:34 Troponin High Sensitivity+C.LAB.BRZ ordered. EDMS EDMS 17:46 14:26 ec2 eb
--- NOTE | 2023-12-09 14:26 | ER ---
Nurse's Notes [facility] Name: Reji Ramirez Age: 58 yrs Sex: Male : 1965 Arrival Date: 12/09/2023 Time: 13:18 Bed 14 Private MD: Diagnosis: Bradycardia, unspecified Presentation: 12/08 13:33 Chief complaint: Sent from cardiac rehab for HR 40s, pt c/o SOB and dizziness since hb 1200 today. Coronavirus screen: At this time, the client does not indicate any symptoms associated with coronavirus-19. Ebola Screen: No symptoms or risks identified at this time. Initial Sepsis Screen: Does the patient meet any 2 criteria? No. Patient's initial sepsis screen is negative. Does the patient have a suspected source of infection? No. Patient's initial sepsis screen is negative. Risk Assessment: Do you want to hurt yourself or someone else? Patient reports no desire to harm self or others. Onset of symptoms was December 09, 2023. 13:33 Method Of Arrival: Wheelchair hb 13:33 Acuity: NITIN 2 hb Triage Assessment: 13:35 General: Appears in no apparent distress. Behavior is calm, cooperative. Pain: Denies hb pain. Neuro: Level of Consciousness is awake, alert, obeys commands, Oriented to person, place, time, situation. Cardiovascular: Patient's skin is warm and dry. Respiratory: Reports shortness of breath at rest Respiratory effort is even, unlabored, Respiratory pattern is regular, symmetrical. Historical: - Allergies: 13:35 Spironolactone; hb - Home Meds: 13:48 amiodarone 200 mg Oral tablet 1 tab 3 times per day [Active]; aspirin 81 mg oral bp capsule 1 cap daily [Active]; atorvastatin 80 mg oral tablet 1 tab daily [Active]; buspirone 5 mg Oral tablet 1 tab 2 times per day [Active]; clopidogrel 75 mg oral tablet 1 tab daily [Active]; cyanocobalamin (vitamin B-12) 500 mcg oral tablet daily [Active]; Farxiga 10 mg oral tablet 1 tab daily [Active]; Colace 100 mg oral capsule 1 cap 2 times per day [Active]; Inspra 25 mg oral tablet 1 tab daily [Active]; Feosol 325 mg (65 mg iron) Oral tablet 1 tab daily [Active]; Lasix 40 mg Oral tablet 1 tabs 2 times per day [Active]; lisinopril 2.5 mg Oral tablet 1 tab daily [Active]; metformin 500 mg Oral tablet 1 tab 2 times per day [Active]; metoprolol tartrate 25 mg oral tablet 1 tab 2 times per day [Active]; Protonix 40 mg oral granules delayed release for susp packet 1 cap daily [Active]; Paxil 20 mg Oral tablet 1 tab daily [Active]; Flomax 0.4 mg Oral capsule 1 cap daily [Active]; trazodone 50 mg Oral tablet 1 tab daily [Active]; - PMHx: 13:35 High Cholesterol; diabetes mellitus; Hypertension; hb - PSHx: 13:35 Cholecystectomy; Coronary artery bypass graft; hb - Immunization history:: Adult Immunizations up to date. - Infectious Disease History:: Denies. - Social history:: Smoking status: Patient denies any tobacco usage or history of. Screenin:35 [facility] ED Fall Risk Assessment (Adult) History of falling in the last 3 months, bp including since admission No falls in past 3 months (0 pts). Abuse screen: Denies threats or abuse. Denies injuries from another. Nutritional screening: No deficits noted. Tuberculosis screening: No symptoms or risk factors identified. Assessment: 13:35 General: Appears in no apparent distress. comfortable, Behavior is cooperative, bp appropriate for age, anxious. 18:15 Reassessment: REPORT FAXED FOR 206. bp Vital Signs: 13:33 BP 100 / 66; Pulse 44; Resp 16; Temp 97.4(TE); Pulse Ox 100% on R/A; Weight 102.51 kg; hb Height 5 ft. 7 in. ; Pain 0/10; 18:15 BP 108 / 72; Pulse 66; Resp 16; Temp 97.5; Pulse Ox 96% ; bp 13:33 Body Mass Index 35.40 (102.51 kg, 170.18 cm) hb 13:33 Pain Scale: Adult hb ED Course: 13:22 Patient arrived in ED. im 13:24 Vick Rust MD is Attending Physician. ec2 13:30 EKG done, by ED staff, reviewed by Vick Rust MD. hb 13:34 Triage completed. hb 13:35 Arm band placed on. hb 13:35 Patient has correct armband on for positive identification. bp 13:37 Nicolás Alvarenga, RN is Primary Nurse. bp 13:47 Inserted saline lock: 20 gauge in right antecubital area, using aseptic technique. bp Blood collected. 13:48 Basic Metabolic Panel Sent. bp 13:48 CBC with Diff Sent. bp 13:48 Magnesium Sent. bp 13:48 NT PRO-BNP Sent. bp 13:48 PT-INR Sent. bp 13:48 Troponin HS Sent. bp 13:55 XRAY Chest (1 view) In Process Unspecified. EDMS 14:26 Raghavendra Meeks MD is Hospitalizing Provider. ec2 Administered Medications: 13:45 Drug: Aspirin PO Chewable Tablet 324 mg PO once; 81 mg tablets x 4 Route: PO; bp Outcome: 14:26 Decision to Hospitalize by Provider. ec2 18:52 Patient left the ED. bp Signatures: Dispatcher [employer] EDMS Kati Cheema, RN RN Nicolás Alarcon, RN RN Maggi Vincent Edwin, MD MD ec2
[2023-12-09] MEDS ORDERED: ONDANSETRON 4 MG/2 ML VIAL IV PRN (17:17)
[2023-12-09] MEDS ORDERED: ACETAMINOPHEN 500 MG TAB PO PRN (17:17)
[2023-12-09] MEDS ORDERED: MORPHINE 2 MG/ML SYR IV PRN (17:17)
--- NOTE | 2023-12-09 17:26 | P.HP ---
Certification for Inpatient Patient admitted to: Observation With expected LOS: <2 Midnights Patient will require the following post-hospital care: None Practitioner: I am a practitioner with admitting privileges, knowledge of patient current condition, hospital course, and medical plan of care. Services: Services provided to patient in accordance with Admission requirements found in Title 42 Section 412.3 of the Code of Federal Regulations Patient History Date of Service: 12/09/23 Reason for admission: Bradycardia History of Present Illness: Patient is a 58-year-old gentleman who came to the hospital with coronary artery disease status post three-vessel CABG x 2 different occasions. Patient recently had bypass surgery a few weeks ago. He has been doing well and patient was discharged home on multiple medication including amiodarone and beta-ang therapy. When patient home patient noted some palpitations and his recent sessions with cardiac rehab revealed his heart rate was in the 40s. Patient was sent to the emergency room. In the ER patient was found to be with a heart rate in the 40s. Patient was admitted for further evaluation. Allergies spironolactone Allergy (Verified 12/09/23 22:49) Hives Home Medications: Aspirin 81 mg PO DAILY 06/11/15 Atorvastatin Calcium [Lipitor] 80 mg PO DAILY 09/01/16 Furosemide 40 mg PO BIDL 09/01/16 Metoprolol Tartrate [Lopressor*] 25 mg PO BID 09/01/16 Dapagliflozin Propanediol [Farxiga] 10 mg PO DAILY 08/15/23 Eplerenone 25 mg PO DAILY 08/15/23 Metformin HCl 500 mg PO BIDWM 08/15/23 Buspirone HCl [Buspar*] 5 mg PO BIDP PRN 12/09/23 Clopidogrel Bisulfate [Plavix*] 75 mg PO DAILY 12/09/23 Ferrous Sulfate [Ferrous Sulfate*] 325 mg PO DAILY 12/09/23 Pantoprazole [Protonix Tab*] 40 mg PO 0600 12/09/23 Paroxetine HCl [Paroxetine ER] 25 mg PO DAILY 12/09/23 Tamsulosin HCl 0.4 mg PO DAILY 12/09/23 Trazodone HCl 50 mg PO BEDTIME PRN PRN 12/09/23 - Past Medical/Surgical History Diabetic: No -: LIPIDS -: HTN -: [place] -: CHF-systolic -: CAD-CABG -: CABG -: LEFT VENTRICLE AN[facility] RESECTION -: holly -: esophgeal repair Psychosocial/ Personal History: Lives at home alone currently - Family History Mother Medical History: Heart disease, Diabetes Notes: HAD MINOR [place], Father Medical History: Heart disease, Diabetes, Stroke Notes: [place] Brother Medical History: Heart disease - Social History Smoking Status: Former smoker Alcohol use: No CD- Drugs: No Caffeine use: Yes Review of Systems 10-point ROS is otherwise unremarkable Physical Examination - Vital Signs Temperature: 98 F Blood Pressure: 120/70 Pulse: 40 Respirations: 18 Pulse Ox (%): 95 - Physical Exam General: Alert, In no apparent distress, Oriented x3 HEENT: Atraumatic, PERRLA, Mucous membr. moist/pink, EOMI, Sclerae nonicteric Neck: Supple, 2+ carotid pulse no bruit, No LAD, Without JVD or thyroid abnormality Respiratory: Clear to auscultation bilaterally, Normal air movement Cardiovascular: Other (Bradycardia), Systolic murmur Gastrointestinal: Normal bowel sounds, Soft and benign, Non-distended, No tenderness Musculoskeletal: No clubbing, No swelling, No tenderness Integumentary: No rashes Neurological: Normal gait, Normal speech, Normal strength at 5/5 x4 extr, Normal tone, Sensation intact, Cranial nerves 3-12 intact, Normal affect Lymphatics: No axilla or inguinal lymphadenopathy - Studies Laboratory Data (last 24 hrs) 12/09/23 12/09/23 12/09/23 13:46 13:46 13:46 WBC 8.50 Hgb 15.7 Hct 45.9 Plt Count 339 PT 12.2 INR 1.11 Sodium 136 Potassium 3.8 BUN 16 Creatinine 0.97 Glucose 168 H Magnesium 2.0 Assessment & Plan - Problems (Diagnosis) (1) Bradycardia with 31-40 beats per minute Current Visit: Yes Status: Acute (2) Coronary artery disease involving autologous artery coronary bypass graft Current Visit: Yes Status: Acute Qualifiers: Associated angina: without angina Qualified Code(s): I25.810 - Atherosclerosis of coronary artery bypass graft(s) without angina pectoris (3) DM type 2 with diabetic mixed hyperlipidemia Current Visit: No Status: Acute (4) Essential hypertension Current Visit: No Status: Acute - Plan Plan: 1. DC amiodarone 2. Continue metoprolol 3. Resume cardiac meds 4. Strict blood pressure and blood sugar control 5. GI DVT prophylaxis Discharge Plan: Home Plan to discharge in: 24 Hours - Advance Directives Does patient have a Living Will: No Does patient have a Durable POA for Healthcare: Yes - Code Status/Comfort Care Code Status Assessed: Yes Code Status: Full Code Critical Care: No Time Spent Managing PTS Care (In Minutes): 45
[2023-12-09 20:12] VITALS: O2SAT 96
[2023-12-09] MEDS: METFORMIN HCL 500 MG TAB ONE (22:02)
[2023-12-09] MEDS: AMIODARONE HCL 200 MG TAB PO SCH (22:10)
[2023-12-09] MEDS: NA CHLORIDE 0.9% 1,000 ML IV SCH (22:11)
[2023-12-09] MEDS: METFORMIN HCL 500 MG TAB PO ONE (22:11)
[2023-12-10 00:35] VITALS: BMI 35.4
[2023-12-10 03:42] LABS: Absolute Basophils 0.1 K/uL (0-0.5); Absolute Eosinophils 0.2 K/uL (0-0.5); Absolute Lymphocytes (CBC) 1.9 K/uL (0.7-4.9); Absolute Monocytes 0.6 K/uL (0.1-1.3); Absolute Neutrophil 5.2 K/uL (1.8-8.0); Basophils % 0.7 % (0-1.3); Eosinophils % 2.3 % (0-4.4); Hematocrit 40.4 % (39.6-49.0); Hemoglobin 13.7 g/dL (13.6-17.9); Lymphocytes % 23.8 % (15.3-44.8); MCH 32.2 pg (27.0-35.0); MCV 94.6 fL (80-100); MPV 7.7 fL (7.6-11.3); Monocytes % 7.6 % (3.3-12.3); Neutrophils % 65.6 % (41.7-73.7); Platelets 280 thou/uL (152-406); RBC Red Blood Cell Count 4.27 M/uL (4.33-5.43)
[2023-12-10 04:59] LABS: Albumin 3.1 g/dL (3.4-5.0); Anion Gap 10.1 mEq/L (5.0-15.0); Bilirubin Total 0.7 mg/dL (0.2-1.0); Globulin 3.1 g/dL (2.3-3.5); Potassium 3.1 mEq/L (3.5-5.1); Protein, Total 6.2 g/dL (6.4-8.2); Thyroid Stimulating Hormone 1.45 uIU/mL (0.358-3.740); Troponin High Sensitivity 19.1 pg/mL (<58.9)
--- NOTE | 2023-12-10 07:28 | P.PN ---
Subjective Date of Service: 12/10/23 57-year-old male with a past medical history CAD, CVA x 2, on amiodarone, metoprolol, Plavix. Admitted with bradycardia. Patient was in cardiac rehab and was referred to the emergency room for further evaluation. EKG sinus bradycardia in the 40s. No acute ST elevation. Laboratory evaluation BNP 880, chest x-ray shows no acute intrathoracic process no reported chest pain, shortness of breath, dizziness. Plan to admit for bradycardia, Dr. Frank sinus rhythm 60s n to consult Patient asymptomatic, no reported chest pain shortness of breath dizziness. Review of Systems Per HPI Physical Examination - Vital Signs Temperature: 96.8 F Blood Pressure: 160/66 Pulse: 70 Respirations: 20 Pulse Ox (%): 92 - Physical Exam General: Alert, In no apparent distress, Oriented x3 HEENT: Atraumatic, Normocephalic Neck: Supple, 2+ carotid pulse no bruit Respiratory: Clear to auscultation bilaterally, Normal air movement Cardiovascular: Normal pulses, Regular rate/rhythm Gastrointestinal: Normal bowel sounds, Soft and benign Musculoskeletal: No clubbing, No swelling Neurological: Normal gait, Normal speech - Studies Laboratory Data (last 24 hrs) 12/09/23 12/09/23 12/09/23 13:46 13:46 13:46 WBC 8.50 Hgb 15.7 Hct 45.9 Plt Count 339 PT 12.2 INR 1.11 Sodium 136 Potassium 3.8 BUN 16 Creatinine 0.97 Glucose 168 H Magnesium 2.0 Assessment And Plan - Plan Assessment plan Sinus bradycardia heart rate in the 40 acute History of CAD Hyperlipidemia History of PA History of CABG times Elevated BNP Telemetry, cardiology to consult On amiodarone metoprolol cardiology to adjust antihypertensive Trend BMP 880 Echo ordered Hypokalemia Trend electrolytes replace as needed GERD Resume home meds Full code Diet cardiac DVT SCDs Disposition Home independent Discharge Plan: Home - Code Status/Comfort Care Code Status: Full Code Critical Care: No Time Spent Managing PTS Care (In Minutes): 35
[2023-12-10] MEDS: POTASSIUM 25 MEQ EFFERV TAB PO ONE (07:51)
[2023-12-10] MEDS: METFORMIN HCL 500 MG TAB PO SCH (07:51)
--- NOTE | 2023-12-10 11:55 | EKG ---
Test Date: 2023-12-09 Test Time: 13:31:26 [employer]: HB MEASUREMENT RESULTS: Intervals: Rate: 44 [place]: QRSD: 116 QT: 472 QTc: 403 [place]: P: [place]: QRS: -15 T: 174 INTERPRETIVE STATEMENTS: Junctional bradycardia Inferior infarct, age undetermined Anterolateral infarct, age undetermined Abnormal ECG Compared to ECG 09/22/2023 13:59:53 Sinus rhythm no longer present ST (T wave) deviation no longer present Possible ischemia no longer present Myocardial infarct finding still present Electronically Signed On 12-10-23 11:53:34 CDT by Antwon Ortiz
--- NOTE | 2023-12-10 13:18 | P.DS ---
Admission Date: 12/09/23 Discharge Date: 12/10/23 Brief History of Present Illness: 57-year-old male with a past medical history CAD, CVA x 2, on amiodarone, metoprolol, Plavix. Admitted with bradycardia. Patient was in cardiac rehab and was referred to the emergency room for further evaluation. EKG sinus bradycardia in the 40s. No acute ST elevation. Laboratory evaluation BNP 880, chest x-ray shows no acute intrathoracic process no reported chest pain, shortness of breath, dizziness. Plan to admit for bradycardia, Dr. Ortiz to consulte. - Physical Exam General: Alert, In no apparent distress, Oriented x3 HEENT: Atraumatic, Normocephalic Neck: Supple, 2+ carotid pulse no bruit Respiratory: Clear to auscultation bilaterally, Normal air movement Cardiovascular: Normal pulses, Regular rate/rhythm Gastrointestinal: Normal bowel sounds, Soft and benign Musculoskeletal: No clubbing, No swelling Neurological: Normal gait, Normal speech Hospital Course: 58 year-old male patient presented with bradycardia. Was noted to have sinus bradycardia, on amiodarone, metoprolol. Patient was evaluated by cardiology, Condition improved with stopping amiodarone. Patient tolerating diet, stable for discharge to home with follow-up appointment with primary care physician. Follow-up with cardiology. PROBLEM: Sinus bradycardia heart rate in the 40 acute Follow-up with cardiology, stop amiodarone per cardiology, continue metoprolol Continue home medicines as previously prescribed GOAL: Clear understanding of disease process INSTRUCTIONS: Physician Discharge Instructions: -DC IV and DC home -Follow-up with PCP in 1 to 2 weeks -Please call Dr. Meeks at [phone] if any questions regarding hospital stay -Please call nursing station at [phone] if any nursing or medication questions -Return to the emergency room if symptoms worsen Diet: ADA, low sodium Activity: Fall precautions <Yennifer López - Last Filed: 12/10/23 13:19> Admission Date: 12/09/23 Discharge Date: 12/10/23 - Problems (1) Bradycardia with 31-40 beats per minute Status: Acute (2) Coronary artery disease involving autologous artery coronary bypass graft Status: Acute Qualifiers: Associated angina: without angina Qualified Code(s): I25.810 - Atherosclerosis of coronary artery bypass graft(s) without angina pectoris (3) DM type 2 with diabetic mixed hyperlipidemia Status: Acute (4) Essential hypertension Status: Acute Hospital Course: Agree with plan of care as mentioned above. Patient has done well during hospital stay. Patient's clinical symptoms have improved. Patient will continue with medical therapy as an outpatient. Patient will follow-up with consultants and PCP as an outpatient in 1 to 2 weeks. Patient chart was reviewed and patient was seen and examined. Agree with RONAL discharge plan. Most of the MDM was done by myself and plan of care was discussed and documented with RONAL. Patient agreeable with discharge plan. Anticipate discharge home with outpatient follow-up as mentioned above. <Raghavendra Meeks - Last Filed: 12/12/23 09:13> Disposition: ROUTINE DISCHARGE Discharge Condition: GOOD Vital Signs/Physical Exam: Temp Pulse Resp BP Pulse Ox 96.9 F 72 18 115/75 95 12/10/23 12:00 12/10/23 12:00 12/10/23 12:00 12/10/23 12:00 12/10/23 12:00 Laboratory Data at Discharge: WBC 8.00 thou/uL (4.3-10.9) 12/10/23 03:08 Hgb 13.7 g/dL (13.6-17.9) D 12/10/23 03:08 Hct 40.4 % (39.6-49.0) 12/10/23 03:08 Plt Count 280 thou/uL (152-406) 12/10/23 03:08 PT 12.2 SECONDS (9.5-12.5) 12/09/23 13:46 INR 1.11 12/09/23 13:46 Sodium 141 mEq/L (136-145) D 12/10/23 03:08 Potassium 3.1 mEq/L (3.5-5.1) L D 12/10/23 03:08 BUN 13 mg/dL (7-18) 12/10/23 03:08 Creatinine 0.73 mg/dL (0.70-1.30) 12/10/23 03:08 Glucose 123 mg/dL (74-106) H 12/10/23 03:08 Magnesium 2.0 mg/dL (1.6-2.4) 12/09/23 13:46 Total Bilirubin 0.7 mg/dL (0.2-1.0) 12/10/23 03:08 AST 19 U/L (15-37) 12/10/23 03:08 ALT 41 U/L (16-61) 12/10/23 03:08 Alkaline Phosphatase 92 U/L (45-117) 12/10/23 03:08 Triglycerides 88 mg/dL (<150) 12/10/23 03:08 Cholesterol 80 mg/dL (<200) 12/10/23 03:08 HDL Cholesterol 31 mg/dL (40-60) L 12/10/23 03:08 Cholesterol/HDL Ratio 2.58 12/10/23 03:08 <Yennifer López - Last Filed: 12/10/23 13:19> Vital Signs/Physical Exam: Temp Pulse Resp BP Pulse Ox 98 F 40 L 18 120/70 95 12/10/23 15:05 12/10/23 15:05 12/10/23 15:05 12/10/23 15:05 12/10/23 15:05 Laboratory Data at Discharge: WBC 8.00 thou/uL (4.3-10.9) 12/10/23 03:08 Hgb 13.7 g/dL (13.6-17.9) D 12/10/23 03:08 Hct 40.4 % (39.6-49.0) 12/10/23 03:08 Plt Count 280 thou/uL (152-406) 12/10/23 03:08 PT 12.2 SECONDS (9.5-12.5) 12/09/23 13:46 INR 1.11 12/09/23 13:46 Sodium 141 mEq/L (136-145) D 12/10/23 03:08 Potassium 3.1 mEq/L (3.5-5.1) L D 12/10/23 03:08 BUN 13 mg/dL (7-18) 12/10/23 03:08 Creatinine 0.73 mg/dL (0.70-1.30) 12/10/23 03:08 Glucose 123 mg/dL (74-106) H 12/10/23 03:08 Magnesium 2.0 mg/dL (1.6-2.4) 12/09/23 13:46 Total Bilirubin 0.7 mg/dL (0.2-1.0) 12/10/23 03:08 AST 19 U/L (15-37) 12/10/23 03:08 ALT 41 U/L (16-61) 12/10/23 03:08 Alkaline Phosphatase 92 U/L (45-117) 12/10/23 03:08 Triglycerides 88 mg/dL (<150) 12/10/23 03:08 Cholesterol 80 mg/dL (<200) 12/10/23 03:08 HDL Cholesterol 31 mg/dL (40-60) L 12/10/23 03:08 Cholesterol/HDL Ratio 2.58 12/10/23 03:08 <Raghavendra Meeks - Last Filed: 12/12/23 09:13> Diet: AHA Activity: Fall precautions Time spent managing pt's care (in minutes): 55 <Yennifer López - Last Filed: 12/10/23 13:19> <Raghavendra Meeks - Last Filed: 12/12/23 09:13> Home Medications: Aspirin 81 mg PO DAILY 06/11/15 Atorvastatin Calcium [Lipitor] 80 mg PO DAILY 09/01/16 Furosemide 40 mg PO BIDL 09/01/16 Dapagliflozin Propanediol [Farxiga] 10 mg PO DAILY 08/15/23 Eplerenone 25 mg PO DAILY 08/15/23 Metformin HCl 500 mg PO BIDWM 08/15/23 Buspirone HCl [Buspar*] 5 mg PO BIDP PRN 12/09/23 Clopidogrel Bisulfate [Plavix*] 75 mg PO DAILY 12/09/23 Ferrous Sulfate [Ferrous Sulfate*] 325 mg PO DAILY 12/09/23 Pantoprazole [Protonix Tab*] 40 mg PO 0600 12/09/23 Paroxetine HCl [Paroxetine ER] 25 mg PO DAILY 12/09/23 Tamsulosin HCl 0.4 mg PO DAILY 12/09/23 Trazodone HCl 50 mg PO BEDTIME PRN PRN 12/09/23 Metoprolol Tartrate 12.5 mg PO BID #30 tab 12/10/23 New Medications: Metoprolol Tartrate 12.5 mg PO BID #30 tab Physician Discharge Instructions: -DC IV and DC home -Follow-up with PCP in 1 to 2 weeks -Follow-up with Cardiology in 1 to 2 weeks -Please call Dr. Meeks at [phone] if any questions regarding hospital stay -Please call nursing station at [phone] if any nursing or medication questions -Return to the emergency room if symptoms worsen Followup: Ayleen Cruz MD [Primary Care Provider] -
--- NOTE | 2023-12-10 13:53 | CON ---
Date of Consultation: 12/10/2023 Reason For Consultation: Bradycardia. History Of Present Illness: This is a 58-year-old male, very well known to me. He had a redo CABG r ecently with the known systolic heart failure. He was discharged on amiodarone and metoprolol post C ABG and then he presented to the emergency room, lightheaded, dizzy and found to be in junctional rhy thm, heart rate in the low 40s. Now he was admitted; amiodarone and beta-ang were stopped and hi s heart rate back is normal today and in sinus rhythm. He feels much better. No chest pain or short ness of breath. Past Medical History: Hypertension, coronary artery disease, CHF, diabetes, dyslipidemia. Medications: Refer to reconciliation sheet for detailed list. Allergies: ALDACTONE. Past Surgical History: CABG twice. Family History: No premature coronary artery disease or cancer. Social History: Does not smoke or drink. Does not use any drugs. Review of Systems: All systems were reviewed and they were negative except as mentioned in the HPI. Physical Examination: Vital Signs: Reviewed. Head and Neck: Pupils are equal, reactive to light. Intact eye movements. No JVD. No cervical lym phadenopathy. Neck is supple. Thyroid is not enlarged. Lungs: Clear to auscultation bilaterally. No rhonchi, wheezing, or crackles. No accessory muscle u se. Heart: Regular rate and rhythm. No extra sounds. Abdomen: Soft, nontender. Bowel sounds positive. No organomegaly. No masses or hernia. No rigidi ty or rebound. Extremities: No edema, clubbing, or cyanosis. Intact pulses. Skin: No rash. No nodule. Neurologic: Alert, awake, oriented x3. No acute focal deficits appreciated. Investigations: BUN 13, creatinine 0.73. Cardiac enzymes are negative and hemoglobin 13.7. Assessment And Recommendations: 1.Junctional bradycardia due to medications. Discontinue amiodarone and he had amiodarone started j ust temporarily after surgery because of temporary atrial fibrillation. At this moment, he is in sin us rhythm. Discontinue amiodarone and resume low-dose beta-ang. 2.Coronary artery disease. No chest pain. Continue home medications. 3.Dyslipidemia. Continue statin. 4.Hypertension. Blood pressure is controlled. Patient can be released from Cardiology standpoint a nd off the amiodarone, on a low-dose beta-ang, to follow up with me in the office in 1 week postd ischarge. /MONIQUE Voice ID: [id number] Report ID: [id number]
[2023-12-10 15:26] VITALS: BP 120/70; TEMP 98
== END 2023-12-10 15:29 | disposition home or self-care (01) ==
LOC: ER 13:18 → ERHOLD 17:17 → 2ND 17:58
PROVIDERS: ADMIT Hospitalist; ATTEND Hospitalist
DX: R00.1 Bradycardia, unspecified (principal); I25.10 Atherosclerotic heart disease of native coronary artery without angina pectoris; I10 Essential (primary) hypertension; E11.9 Type 2 diabetes mellitus without complications; E78.2 Mixed hyperlipidemia; Z95.1 Presence of aortocoronary bypass graft; Z88.8 Allergy status to other drugs, medicaments and biological substances; E78.00 Pure hypercholesterolemia, unspecified
CPT/HCPCS: 93005; 85025 ×2; 80048; 36415; 83735; 85610; 80061; 82947 ×3; 84443; 84484 ×3; 84439; 80053; 83880; 71045; 99284; J7030; G0378 ×3

== ENCOUNTER 2024-08-18 20:32 | Observation (INO) | payer BC ==
[2024-08-18 20:51] LABS: Absolute Basophils 0.2 K/uL (0-0.5); Absolute Eosinophils 0.2 K/uL (0-0.5); Absolute Lymphocytes (CBC) 3.4 K/uL (0.7-4.9); Absolute Monocytes 0.7 K/uL (0.1-1.3); Absolute Neutrophil 6.3 K/uL (1.8-8.0); Basophils % 1.4 % (0-1.3); Eosinophils % 1.6 % (0-4.4); Hematocrit 51.1 % (39.6-49.0); Hemoglobin 17.3 g/dL (13.6-17.9); Lymphocytes % 31.8 % (15.3-44.8); MCH 32.3 pg (27.0-35.0); MCHC 33.8 g/dL (32.0-36.0); MCV 95.3 fL (80-100); MPV 7.2 fL (7.6-11.3); Monocytes % 6.6 % (3.3-12.3); Neutrophils % 58.6 % (41.7-73.7); Nucleated Red Blood Cells % 0.1 % (0-0); Platelets 278 thou/uL (152-406); RBC Red Blood Cell Count 5.36 M/uL (4.33-5.43); Red Cell Distribution Width 13.2 % (12.1-15.2)
[2024-08-18 20:56] LABS: Protime INR 0.98
--- NOTE | 2024-08-18 21:07 | RAD REPORT ---
EXAM: Chest Single View HISTORY: CHEST PAIN COMPARISON: 12/09/2023 FINDINGS: LUNGS/PLEURA: The lungs are clear. No pleural effusions or pneumothorax. No pulmonary edema. MEDIASTINUM: The mediastinal silhouette is within normal limits. CARDIAC: Cardiomegaly. UPPER ABDOMEN: No significant abnormality. BONES: No acute fracture. Sternotomy. LINES/TUBES/OTHER: N/A IMPRESSION: No evidence of acute cardiopulmonary disease.
[2024-08-18 21:12] LABS: Albumin 3.6 g/dL (3.4-5.0); Anion Gap 9.2 mEq/L (5.0-15.0); Bilirubin Direct 0.2 mg/dL (0-0.2); Bilirubin Indirect, Calculated 0.6 mg/dL (0.2-0.8); Bilirubin Total 0.8 mg/dL (0.2-1.0); Globulin 3.6 g/dL (2.3-3.5); Protein, Total 7.2 g/dL (6.4-8.2); Troponin High Sensitivity 5.6 pg/mL (<58.9)
[2024-08-18 21:14] LABS: Magnesium 2.1 mg/dL (1.6-2.4); Potassium 4.2 mEq/L (3.5-5.1)
--- NOTE | 2024-08-18 22:20 | RAD REPORT ---
EXAM: Angio Aorta For Dissection CLINICAL INDICATION: Male, 58 years chest pain;Abd pain TECHNIQUE: CTA of the aorta was obtained including the chest, abdomen and pelvis, with IV contrast, a s per department protocol. Axial, sagittal and coronal reconstructions were obtained. Post-processing was applied at the acquisition scanner with concurrent physician supervision which in cludes 3D reconstructions, MIPs, volume rendered images and/or shaded surface rendering. One or more of the following dose reduction techniques were used: Automated exposure control, adjustment of the mA and/or kV according to the patient size, and/or iterative reconstruction. Unless otherwise specified, incidental findings do not require dedicated imaging follow-up. [id number]. COMPARISON: Chest CT 10/15/2015, chest radiograph same day FINDINGS: Chest: LOWER NECK/CHEST WALL: Visualized thyroid gland and soft tissues are normal. LUNGS AND AIRWAYS: Airways are clear. No evidence of airspace or interstitial process. No nodules. Li near scarring in the right upper lobe. PLEURA: No pleural effusion. No pneumothorax. Hemidiaphragms are normally positioned. MEDIASTINUM AND LYMPH NODES: No mediastinal mass or fluid collection. Normal size mediastinal, hilar, and axillary lymph nodes. Mild circumferential thickening of the distal esophagus. THORACIC AORTA: Normal caliber and configuration. PULMONARY ARTERIES: Normal caliber. HEART: Coronary artery calcifications. CABG. Abdomen/Pelvis LIVER: Hepatic steatosis. GALLBLADDER/BILE DUCTS: Cholecystectomy PANCREAS: No mass, ductal dilation, or bhavin-pancreatic fluid. SPLEEN: Normal size. No focal lesion. ADRENALS: Normal; no mass. KIDNEYS AND URETERS: Normal size and contour. No hydronephrosis. GASTROINTESTINAL TRACT: Surgical changes at the gastroesophageal junction. No bowel obstruction. Norm al appendix. Diverticulosis without diverticulitis. PERITONEUM: No free fluid. LYMPH NODES: No lymphadenopathy. ABDOMINAL AORTA AND OTHER VESSELS: Normal caliber aorta and IVC. Mild atherosclerosis. No aneurysm or dissection. URINARY BLADDER: Normal contour. REPRODUCTIVE ORGANS: No pathologic process. MUSCULOSKELETAL: No acute or suspicious osseous abnormality. ADDITIONAL FINDINGS: None IMPRESSION: No aortic aneurysm or dissection. No acute or significant abnormalities in the chest, abdomen, or pel vis. Incidental findings as noted above.
--- NOTE | 2024-08-18 22:39 | EDPHYS ---
Physician Documentation [facility] Name: Reji Ramirez Age: 58 yrs Sex: Male : 1965 Arrival Date: 08/18/2024 Time: 20:32 Bed 17 Private MD: ED Physician Brandon Hahn HPI: 08/18 21:05 This 58 yrs old Male presents to ER via Ambulatory with complaints of Back Pain, ms3 Epigastric Pain, Chest Pain, Palpitations. 21:05 . ms3 21:14 The patient presents to the Emergency Department reporting an episode of irregular ms3 heartbeats starting around 6:30 PM, which resolved quickly. Post this episode, the patient experienced intermittent pain in the right scapula area, right side of the chest, and center of the back. Given the history of undergoing a second triple bypass surgery in October, the patient decided to seek medical evaluation. The patient also mentions having anxiety issues and suspects the possibility of a panic attack. He reports slight indigestion that has resolved, attributing it to dietary intake. There is no nausea or vomiting. The pain was described as mild, rated as 1 or less on a scale of 1 to 10, and is currently not present. The patient expresses concern about the nature of the pain due to its location and history of coronary artery disease and diabetes.. Historical: - Allergies: 21:03 spironolactone; cp4 21:04 spironolactone; ay - PMHx: 21:03 diabetes mellitus; High Cholesterol; Hypertension; cp4 21:04 diabetes mellitus; High Cholesterol; Hypertension; ay - PSHx: 21:03 Cholecystectomy; Coronary artery bypass graft; cp4 21:04 Cholecystectomy; Coronary artery bypass graft; ay - Immunization history:: Adult Immunizations up to date. - Infectious Disease History:: Denies. - Social history:: Smoking status: Patient/guardian denies using tobacco, but has a distant history of tobacco abuse. ROS: 21:05 Constitutional: Negative for fever, and chills. Respiratory: Negative for shortness of ms3 breath, cough, wheezing, and pleuritic chest pain, MS/Extremity: Negative for injury and deformity, 21:05 Skin: Negative for injury, rash, and discoloration, 21:05 Cardiovascular: Positive for chest pain, 21:05 Abdomen/GI: Positive for abdominal pain, Exam: 21:05 Constitutional: This is a well developed, well nourished patient who is awake, alert, ms3 and in no acute distress. Chest/axilla: Normal chest wall appearance and motion. Nontender with no deformity. Cardiovascular: Regular rate and rhythm with a normal S1 and S2. No gallops, murmurs, or rubs. Normal PMI, no JVD. No pulse deficits. Respiratory: Lungs have equal breath sounds bilaterally, clear to auscultation and percussion. No rales, rhonchi or wheezes noted. No increased work of breathing, no retractions or nasal flaring. Abdomen/GI: Soft, non-tender, with normal bowel sounds. No distension or tympany. No guarding or rebound. No evidence of tenderness throughout. Skin: Warm, dry with normal turgor. Normal color with no rashes, no lesions, and no evidence of cellulitis. 21:30 ECG was reviewed by the Attending Physician. ms3 Vital Signs: 20:55 BP 119 / 69; Pulse 78; Resp 18; Temp 98.5(O); Pulse Ox 97% on R/A; ay 22:14 BP 118 / 64; Pulse 81; Resp 18 S; Pulse Ox 96% on R/A; ay 22:26 BP 104 / 70; Pulse 76; Resp 18; Pulse Ox 95% on R/A; ay 23:06 BP 112 / 62; Pulse 79; Resp 18; Pulse Ox 95% on R/A; ay 12/14 00:21 BP 101 / 66; Pulse 77; Resp 18; Pulse Ox 95% on R/A; ay [place] Coma Score: 12/13 22:14 Eye Response: spontaneous(4). Motor Response: obeys commands(6). Verbal Response: ay oriented(5). Total: 15. MDM: 20:44 Medical Screening Exam initiated ms3 22:29 Differential diagnosis: Abdominal Aortic Aneurysm LA vs ACS vs Pancreatitis. Data ms3 reviewed: vital signs, nurses notes, lab test result(s), EKG, radiologic studies, and as a result, I will admit patient. Consideration of Admission/Observation Patient was admitted/placed on observation. 22:31 I considered the following discharge prescriptions or medication management in the id3 emergency department Medications were administered in the Emergency Department. See MAR. Independent interpretation of the following test(s) in the Emergency Department EKG: See my EKG interpretation above X-Ray: My interpretation is CXR image reviewed by me does not reveal PNA or pulmonary edema. Care significantly affected by the following chronic conditions: Diabetes, Hypertension. Scoring Tools HEART Score: History: Slightly Suspicious (0) ECG: Normal (0) Age: > 45 and < 65 years (1) Risk Factors: > or = 3 Risks factors for Atherosclerotic disease (2) Troponin: < or = 1 x Normal limit (0) Total Score = 3. Counseling: I had a detailed discussion with the patient and/or guardian regarding the historical points, exam findings, and any diagnostic results supporting the discharge/admit diagnosis, lab results, radiology results, the need for further work-up and treatment in the hospital. 08/18 20:39 Order name: Basic Metabolic Panel; Complete Time: 21:16 ms3 08/18 20:39 Order name: CBC with Diff; Complete Time: 21:13 ms3 08/18 20:39 Order name: LFT's; Complete Time: 21:16 ms3 08/18 20:39 Order name: Magnesium; Complete Time: 21:16 ms3 08/18 20:39 Order name: PT-INR; Complete Time: 21:13 ms3 08/18 20:39 Order name: Troponin HS; Complete Time: 21:16 ms3 08/18 20:39 Order name: Lipase; Complete Time: 21:16 ms3 08/19 00:12 Order name: Lipid Profile EDMS 08/19 00:12 Order name: Lipid Profile EDMS 08/19 00:12 Order name: Troponin High Sensitivity EDMS 08/19 00:12 Order name: Troponin High Sensitivity EDMS 08/19 00:12 Order name: Troponin High Sensitivity EDMS 08/19 00:12 Order name: Troponin High Sensitivity EDMS 08/19 00:12 Order name: Troponin High Sensitivity EDMS 08/18 20:39 Order name: XRAY Chest (1 view); Complete Time: 21:13 ms3 08/18 21:14 Order name: CT Aorta for Dissection; Complete Time: 22:29 ms3 08/19 00:12 Order name: Echo with Doppler EDMS 08/18 20:39 Order name: Cardiac monitoring; Complete Time: 20:59 ms3 08/18 20:39 Order name: EKG - Nurse/Tech; Complete Time: 20:59 ms3 08/18 20:39 Order name: IV Saline Lock; Complete Time: 20:59 ms3 08/18 20:39 Order name: Labs collected and sent; Complete Time: 20:59 ms3 08/18 20:39 Order name: O2 Per Protocol; Complete Time: 20:59 ms3 08/18 20:39 Order name: O2 Sat Monitoring; Complete Time: 20:59 ms3 EC:30 Rate is 76 beats/min. Rhythm is regular. QRS [place] is Normal. [place] interval is normal. QRS ms3 interval is normal. Clinical impression: NSR w/ Non-specific ST/T Changes. Interpreted by me. Reviewed by me. Administered Medications: 22:52 Drug: Aspirin PO Chewable Tablet 324 mg PO once; 81 mg tablets x 4 Route: PO; ay 23:07 Follow up: Response: No adverse reaction ay Disposition Summary: 08/18/24 22:38 Hospitalization Ordered Notes: Hospitalization Status: Observation ms3 Provider: Toni Blum ms3 Location: Telemetry/MedSurg (observation) ms3 Condition: Stable ms3 Problem: new ms3 Symptoms: are unchanged ms3 Bed/Room Type: Standard ms3 Room Assignment: 210(08/19/24 00:44) rv1 Diagnosis - Chest pain, unspecified ms3 Forms: - Medication Reconciliation Form ms3 - SBAR form ms3 - Leadership Thank You Letter ms3 Signatures: Dispatcher [employer] EDMS Brandon Hahn DO DO ms3 Radha Live rv1 Zamzam Pompa cp4 Sid Candelaria, RN RN ay Corrections: (The following items were deleted from the chart) 20:39 20:39 BASIC METABOLIC PANEL+C.LAB.BRZ ordered. EDMS EDMS 20:39 20:39 CBC+H.LAB.BRZ ordered. EDMS EDMS 20:39 20:39 HEPATIC FUNCTION+C.LAB.BRZ ordered. EDMS EDMS 20:39 20:39 MAGNESIUM+C.LAB.BRZ ordered. EDMS EDMS 20:39 20:39 PROTIME (+INR)+COAG.LAB.BRZ ordered. EDMS EDMS 20:39 20:39 Troponin High Sensitivity+C.LAB.BRZ ordered. EDMS EDMS 20:39 20:39 LIPASE+C.LAB.BRZ ordered. EDMS EDMS 20:39 20:39 Chest Single View+RAD.RAD.BRZ ordered. EDMS EDMS 21:09 21:05 Emerson Almeida is an 89-year-old male who presents to the Emergency ms3 Department after sliding from his wheelchair to the floor while attempting to transfer to the bed. The incident occurred approximately 30 minutes prior to arrival. He reports feeling sore but denies any pain. Mr. Almeida did not hit his head or neck during the occurrence. There is no report of bleeding or head injury. . ms3 08/19 00:44 12 22:38 ms3 rv1
--- NOTE | 2024-08-18 22:39 | ER ---
Nurse's Notes [facility] [place] Name: Reji Ramirez Age: 58 yrs Sex: Male : 1965 Arrival Date: 08/18/2024 Time: 20:32 Bed 17 Private MD: Diagnosis: Chest pain, unspecified Presentation: 08/18 20:55 Chief complaint: Patient states: chest pain that radiates to the back and left scapula. ay Coronavirus screen: Client denies travel out of the [place] in the last 14 days. Ebola Screen: No symptoms or risks identified at this time. Initial Sepsis Screen: Does the patient meet any 2 criteria? No. Patient's initial sepsis screen is negative. Does the patient have a suspected source of infection? No. Patient's initial sepsis screen is negative. Risk Assessment: Do you want to hurt yourself or someone else? Patient reports no desire to harm self or others. 20:55 Method Of Arrival: Ambulatory ay 20:55 Acuity: NITIN 2 ay 21:03 Onset of symptoms was August 18, 2024 at 18:30. cp4 Triage Assessment: 21:03 General: Appears in no apparent distress. uncomfortable, Behavior is calm, cooperative, cp4 appropriate for age. Pain: Complains of pain in back and chest Pain currently is 6 out of 10 on a pain scale. Musculoskeletal: Circulation, motion, and sensation intact. Range of motion: intact in all extremities. 21:04 General: Appears in no apparent distress. Behavior is calm, cooperative. Pain: ay Complains of pain in chest Pain radiates to back, left scapula Pain currently is 1 out of 10 on a pain scale. EENT: No signs and/or symptoms were reported regarding the EENT system. Neuro: Level of Consciousness is awake, alert, obeys commands, Oriented to person, place, time, situation, Speech is normal. Cardiovascular: Heart tones S1 S2 Capillary refill < 3 seconds Rhythm is regular Chest pain is described as mild, quality is. Respiratory: Airway is patent. GI: Abdomen is round distended, Bowel sounds present X 4 quads. : No signs and/or symptoms were reported regarding the genitourinary system. Derm: No signs and/or symptoms reported regarding the dermatologic system. Musculoskeletal: Capillary refill < 3 seconds. Historical: - Allergies: 21:03 spironolactone; cp4 21:04 spironolactone; ay - PMHx: 21:03 diabetes mellitus; High Cholesterol; Hypertension; cp4 21:04 diabetes mellitus; High Cholesterol; Hypertension; ay - PSHx: 21:03 Cholecystectomy; Coronary artery bypass graft; cp4 21:04 Cholecystectomy; Coronary artery bypass graft; ay - Immunization history:: Adult Immunizations up to date. - Infectious Disease History:: Denies. - Social history:: Smoking status: Patient/guardian denies using tobacco, but has a distant history of tobacco abuse. Screenin:14 [facility] ED Fall Risk Assessment (Adult) History of falling in the last 3 months, ay including since admission No falls in past 3 months (0 pts) Confusion or Disorientation No (0 pts) Intoxicated or Sedated No (0 pts) Impaired Gait No (0 pts) Mobility Assist Device Used No (0 pt) Altered Elimination No (0 pt) Score/Fall Risk Level 0 - 2 = Low Risk Oriented to surroundings, Maintained a safe environment, Educated pt \T\ family on fall prevention, incl call for assistance when getting out of bed. Abuse screen: Denies threats or abuse. Nutritional screening: No deficits noted. Tuberculosis screening: No symptoms or risk factors identified. Assessment: 22:14 Reassessment: See triage assessment. Neuro: Level of Consciousness is awake, alert, ay obeys commands, Oriented to person, place, time, situation. 22:14 Cardiovascular: Heart tones S1 S2 Rhythm is regular. ay 23:05 Reassessment: No changes from previously documented assessment. Patient and/or family ay updated on plan of care and expected duration. Pain level reassessed. Patient denies pain at this time. 08/19 00:19 Reassessment: No changes from previously documented assessment. Patient and/or family ay updated on plan of care and expected duration. Pain level reassessed. Vital Signs: 08/18 20:55 BP 119 / 69; Pulse 78; Resp 18; Temp 98.5(O); Pulse Ox 97% on R/A; ay 22:14 BP 118 / 64; Pulse 81; Resp 18 S; Pulse Ox 96% on R/A; ay 22:26 BP 104 / 70; Pulse 76; Resp 18; Pulse Ox 95% on R/A; ay 23:06 BP 112 / 62; Pulse 79; Resp 18; Pulse Ox 95% on R/A; ay 08/19 00:21 BP 101 / 66; Pulse 77; Resp 18; Pulse Ox 95% on R/A; ay Vitals: 08/18 22:14 Cardiac Rhythm Assessment Regular. ay [place] Coma Score: 22:14 Eye Response: spontaneous(4). Motor Response: obeys commands(6). Verbal Response: ay oriented(5). Total: 15. ED Course: 20:34 Patient arrived in ED. im 20:38 Brandon Hahn DO is Attending Physician. ms3 20:43 No provider procedures requiring assistance completed. Initial lab(s) drawn, by juan cameron sent to lab. EKG done, by ED staff, reviewed by Brandon Hahn DO. Inserted saline lock: 20 gauge in right antecubital area, using aseptic technique. Blood collected. Flushed with 10 mL NS. Patient maintains SpO2 saturation greater than 95% on room air. 20:55 Sid Candelaria, RN is Primary Nurse. ay 20:59 Triage completed. ay 21:03 XRAY Chest (1 view) In Process Unspecified. EDMS 21:03 Arm band placed on right wrist. Patient placed in waiting room. cp4 22:08 CT Aorta for Dissection In Process Unspecified. EDMS 22:14 Patient has correct armband on for positive identification. Placed in gown. Bed in low ay position. Call light in reach. Side rails up X2. Provided Education on: care plan. 22:38 Toni Blum MD is Hospitalizing Provider. ms3 08/19 01:46 Patient admitted, IV remains in place. ay Administered Medications: 08/18 22:52 Drug: Aspirin PO Chewable Tablet 324 mg PO once; 81 mg tablets x 4 Route: PO; ay 23:07 Follow up: Response: No adverse reaction ay Medication: 22:14 VIS not applicable for this client. ay Outcome: 22:38 Decision to Hospitalize by Provider. ms3 08/19 01:46 Admitted to Med/surg accompanied by nurse, via wheelchair, ay Condition: stable Instructed on the need for admit, 01:48 Patient left the ED. ay Signatures: Dispatcher [employer] EDMS Brandon Hahn DO DO ms3 Maggi Gonzalez Zamzam [place] cp4 Cesar Patiño, RN RN bm8 Sid Candelaria RN RN ay Corrections: (The following items were deleted from the chart) 08/18 22:15 22:11 Reassessment: fausto lambert
[2024-08-18] MEDS ORDERED: ASPIRIN 81 MG CHEWABLE TABLET ONE (22:47)
--- NOTE | 2024-08-19 00:03 | P.HP ---
Certification for Inpatient Patient admitted to: Observation With expected LOS: >2 Midnights Practitioner: I am a practitioner with admitting privileges, knowledge of patient current condition, hospital course, and medical plan of care. Services: Services provided to patient in accordance with Admission requirements found in Title 42 Section 412.3 of the Code of Federal Regulations Patient History Date of Service: 08/18/24 Reason for admission: chest pain History of Present Illness: 58-year-old male with history of coronary artery disease CABG x 2 presented to the ER with complaints of chest pain since 6:30 PM today as well as irregular heartbeats. Patient reports pain was mainly epigastric with back pain. He did also experience palpitations. The patient does follow with cardiology. And states that he was scheduled for a stress test in 3-1/2 weeks. He denies any recent fevers or chills. He does report having some anxiety. He also reports history of hypertension as well as diabetes and hyperlipidemia. Initial troponin was negative. A lipase was also ordered that was unremarkable. A CTA was also done which did not show any severe aortic disease Allergies spironolactone Allergy (Verified 12/09/23 22:49) Hives Home Medications: Aspirin 81 mg PO DAILY 06/11/15 Atorvastatin Calcium [Lipitor] 80 mg PO DAILY 09/01/16 Furosemide 40 mg PO BIDL 09/01/16 Dapagliflozin Propanediol [Farxiga] 10 mg PO DAILY 08/15/23 Eplerenone 25 mg PO DAILY 08/15/23 Metformin HCl 500 mg PO BIDWM 08/15/23 Buspirone HCl [Buspar*] 5 mg PO BIDP PRN 12/09/23 Clopidogrel Bisulfate [Plavix*] 75 mg PO DAILY 12/09/23 Ferrous Sulfate [Ferrous Sulfate*] 325 mg PO DAILY 12/09/23 Pantoprazole [Protonix Tab*] 40 mg PO 0600 12/09/23 Paroxetine HCl [Paroxetine ER] 25 mg PO DAILY 12/09/23 Tamsulosin HCl 0.4 mg PO DAILY 12/09/23 Trazodone HCl 50 mg PO BEDTIME PRN PRN 12/09/23 Metoprolol Tartrate 12.5 mg PO BID #30 tab 12/10/23 - Past Medical/Surgical History Diabetic: No -: LIPIDS -: HTN -: [place] -: CHF-systolic -: CAD-CABG -: GERD -: CABG -: LEFT VENTRICLE ANURSYMC RESECTION -: holly -: esophgeal repair Psychosocial/ Personal History: Lives at home alone currently - Family History Mother -: Heart disease, Diabetes Notes: HAD MINOR LA, Father -: Heart disease, Diabetes, Stroke Notes: [place] Brother -: Heart disease - Social History Alcohol use: No CD- Drugs: No Caffeine use: Yes Review of Systems 10-point ROS is otherwise unremarkable Physical Examination - Physical Exam General: Oriented x3 HEENT: Atraumatic, Normocephalic Neck: Supple Respiratory: Clear to auscultation bilaterally, Normal air movement Cardiovascular: Regular rate/rhythm, Normal S1 S2 Musculoskeletal: No clubbing, No swelling Integumentary: No rashes - Studies Laboratory Data (last 24 hrs) 08/18/24 08/18/24 08/18/24 20:42 20:42 20:42 WBC 10.80 Hgb 17.3 Hct 51.1 H Plt Count 278 PT 11.0 INR 0.98 Sodium 136 Potassium 4.2 BUN 18 Creatinine 1.19 Glucose 163 H Magnesium 2.1 Total Bilirubin 0.8 AST 17 ALT 28 Alkaline Phosphatase 101 Lipase 20 Assessment and Plan - Problems (Diagnosis) (1) Chest pain Onset Date: 09/16/16 Current Visit: No Status: Acute (2) Coronary artery disease involving autologous artery coronary bypass graft Current Visit: No Status: Acute Qualifiers: Associated angina: without angina Qualified Code(s): I25.810 - Atherosclerosis of coronary artery bypass graft(s) without angina pectoris (3) DM type 2 with diabetic mixed hyperlipidemia Current Visit: No Status: Acute (4) Essential hypertension Current Visit: No Status: Acute - Plan 58-year-old male with history of diabetes, coronary disease, CABG x 2 presents with chest pain and palpitations. #chest pain #palpitations #CAD #HTN #HLD --admit for chest pain observation with telemetry --serial troponins, flp --echo not available --restart home medications, reports taking all PM meds for today --consider cardiology consultation if chest pain not better, or troponin increases #T2DM --fsbs, ssi, check aic - Advance Directives Does patient have a Living Will: No Does patient have a Durable POA for Healthcare: Yes
[2024-08-19] MEDS ORDERED: ACETAMINOPHEN 500 MG TAB PO PRN (00:05)
[2024-08-19 02:14] VITALS: O2SAT 95
[2024-08-19 02:44] VITALS: BMI 37.0
[2024-08-19 03:29] LABS: Troponin High Sensitivity 7.1 pg/mL (<58.9)
[2024-08-19] MEDS ORDERED: BUSPIRONE HCL 5 MG TABLET PO PRN (05:38)
[2024-08-19] MEDS: METOPROLOL TAR 25 MG TAB PO SCH (09:00)
[2024-08-19] MEDS: TAMSULOSIN 0.4 MG SR CAP PO SCH (10:14)
[2024-08-19] MEDS: CLOPIDOGREL 75 MG TABLET PO SCH (10:14)
[2024-08-19] MEDS: ATORVASTATIN 80 MG TAB PO SCH (10:14)
[2024-08-19] MEDS: ASPIRIN 81 MG CHEWABLE TABLET PO SCH (10:15)
[2024-08-19 11:54] VITALS: BP 107/64; TEMP 98.5
--- NOTE | 2024-08-19 14:05 | P.DS ---
Admission Date: 08/19/24 Discharge Date: 08/19/24 Disposition: ROUTINE DISCHARGE Reason for Admission: chest pain Brief History of Present Illness: 58-year-old male with history of anxiety, coronary artery disease CABG x 2 presented to the ER with complaints of chest pain since 6:30 PM today as well as irregular heartbeats. Patient reports pain was mainly epigastric with back pain. He did also experience palpitations. The patient does follow with cardi ology. And states that he was scheduled for a stress test in 3-1/2 weeks. He denies any recent fevers or chills. He does report having some anxiety. He also reports history of hypertension as well as diabetes and hyperlipidemia. Initial troponin was negative. A lipase was also ordered that was unremarkable. A CTA was also done which did not show any severe aortic disease - Physical Exam General: Oriented x3 HEENT: Atraumatic, Normocephalic Neck: Supple Respiratory: Clear to auscultation bilaterally, Normal air movement Cardiovascular: Regular rate/rhythm, Normal S1 S2 Musculoskeletal: No clubbing, No swelling Integumentary: No rashes Hospital Course: 58-year-old male with history of anxiety, coronary artery disease CABG x 2 presented to the ER with complaints of chest pain since 6:30 PM today as well as irregular heartbeats. Patient reports pain was mainly epigastric with back pain. He did also experience palpitations. The patient does follow with cardiology. And states that he was scheduled for a stress test in 3-1/2 weeks. He denies any recent fevers or chills. He does report having some anxiety. He also reports history of hypertension as well as diabetes and hyperlipidemia. Initial troponin was negative. A lipase was also ordered that was unremarkable. A CTA was also done which did not show any severe aortic disease. Serial troponins negative, he reports seeing a psychiatrist for anxiety, he reports no chest pain while inpatient., Plan to discharge home, follow-up with cardiology, psychiatrist after discharge. Discharge medication Anxiety medications refilled Assessment Anxiety, resume antianxiety medications, patient needs to follow-up with psychiatrist after discharge Chest pain rule out [place]-0 serial troponins negative, stress test scheduled for outpatient Palpitations-no palpitations while inpatient-resume home antihypertensives History of CAD with bypass graft-resume home antilipid, Diabetes type 2 resume home meds after discharge Hyperlipidemia, hypertension, resume homes after discharge Continue home medicines as previously prescribed GOAL: Clear understanding of disease process INSTRUCTIONS: Physician Discharge Instructions: -Follow-up with cardiology after discharge call office for appointment -Follow-up with psychiatry after discharge call office for appointment -Follow-up with PCP in 1 to 2 weeks -Please call Dr. Meeks at [phone] if any questions regarding hospital stay -Please call nursing station at [phone] if any nursing or medication questions -Return to the emergency room if symptoms worsen Diet: ADA, low sodium Activity: Fall precautions Vital Signs/Physical Exam: Temp Pulse Resp BP Pulse Ox 98.5 F 77 14 107/64 95 08/19/24 11:53 08/19/24 11:53 08/19/24 11:53 08/19/24 11:53 08/19/24 11:53 Laboratory Data at Discharge: WBC 10.80 thou/uL (4.3-10.9) 08/18/24 20:42 Hgb 17.3 g/dL (13.6-17.9) 08/18/24 20:42 Hct 51.1 % (39.6-49.0) H 08/18/24 20:42 Plt Count 278 thou/uL (152-406) 08/18/24 20:42 PT 11.0 SECONDS (9.4-12.5) 08/18/24 20:42 INR 0.98 08/18/24 20:42 Sodium 136 mEq/L (136-145) 08/18/24 20:42 Potassium 4.2 mEq/L (3.5-5.1) 08/18/24 20:42 BUN 18 mg/dL (7-18) 08/18/24 20:42 Creatinine 1.19 mg/dL (0.70-1.30) 08/18/24 20:42 Glucose 163 mg/dL (74-106) H 08/18/24 20:42 Magnesium 2.1 mg/dL (1.6-2.4) 08/18/24 20:42 Total Bilirubin 0.8 mg/dL (0.2-1.0) 08/18/24 20:42 AST 17 U/L (15-37) 08/18/24 20:42 ALT 28 U/L (16-61) 08/18/24 20:42 Alkaline Phosphatase 101 U/L (45-117) 08/18/24 20:42 Triglycerides Cancelled 08/19/24 Unknown Cholesterol Cancelled 08/19/24 Unknown HDL Cholesterol Cancelled 08/19/24 Unknown Cholesterol/HDL Ratio Cancelled 08/19/24 Unknown Lipase 20 U/L (13-75) 08/18/24 20:42 Home Medications: Aspirin 81 mg PO DAILY 06/11/15 Atorvastatin Calcium [Lipitor] 80 mg PO DAILY 09/01/16 Furosemide 40 mg PO BIDL 09/01/16 Dapagliflozin Propanediol [Farxiga] 10 mg PO DAILY 08/15/23 Eplerenone 25 mg PO DAILY 08/15/23 Metformin HCl 500 mg PO BIDWM 08/15/23 Buspirone HCl [Buspar*] 5 mg PO BIDP PRN 12/09/23 Clopidogrel Bisulfate [Plavix*] 75 mg PO DAILY 12/09/23 Ferrous Sulfate [Ferrous Sulfate*] 325 mg PO DAILY 12/09/23 Pantoprazole [Protonix Tab*] 40 mg PO 0600 12/09/23 Paroxetine HCl [Paroxetine ER] 25 mg PO DAILY 12/09/23 Tamsulosin HCl 0.4 mg PO DAILY 12/09/23 Trazodone HCl 50 mg PO BEDTIME PRN PRN 12/09/23 Metoprolol Tartrate 12.5 mg PO BID #30 tab 12/10/23 Diet: Regular Activity: Fall precautions Followup: Ayleen Cruz DO [Primary Care Provider] - Antwon Ortiz MD [ACTIVE - CAN ADMIT] - Time spent managing pt's care (in minutes): 45
== END 2024-08-19 15:08 | disposition home or self-care (01) ==
LOC: ER 20:32 → ERHOLD 08-19 00:05 → 2ND 08-19 01:57
PROVIDERS: ADMIT Internal Medicine; ATTEND Hospitalist
DX: F41.9 Anxiety disorder, unspecified (principal); R07.9 Chest pain, unspecified; I25.10 Atherosclerotic heart disease of native coronary artery without angina pectoris; I10 Essential (primary) hypertension; E78.2 Mixed hyperlipidemia; E11.9 Type 2 diabetes mellitus without complications; Z88.8 Allergy status to other drugs, medicaments and biological substances; Z95.1 Presence of aortocoronary bypass graft
CPT/HCPCS: 85025; 80048; 36415 ×2; 83735; 85610; 80061; 80076; 83036; 84484 ×3; 83690; 71275; 74175; 71045; Q9967; 99285; G0378